=== PATIENT | male | born 1990 | race Caucasian/White ===

== ENCOUNTER 2016-12-08 20:10 | Emergency (ER) | payer SELFPAY ==
[2016-12-08] MEDS ORDERED: NORMAL SALINE 1000 ML 1,000 ML IV ONE ×2 (20:28→21:22)
--- NOTE | 2016-12-08 20:29 | ER Document Report ---
ED Substance Abuse / Acc. OD - General Stated Complaint: POSSIBLE OVERDOSE Time Seen by Provider: 12/08/16 20:18 Notes: Patient is a 26-year-old male that comes emergency department for chief complaint of heroin overdose. Patient was found unresponsive in the bathroom at home, uncle called EMS, EMS gave 1 mg of Narcan intranasally. Patient states he took 1/10 of a gram of heroin. He states he typically uses every few days. He denies mixing drugs or having any other medications in his system, he denies any prescription medications or diagnosed medical problems. He states he just feels like his mouth is extremely dry now. He denies difficulty breathing, chest pain, he denies any recent fevers, he denies headache. TRAVEL OUTSIDE OF THE [place] IN LAST 30 DAYS: No - Related Data Allergies/Adverse Reactions: No Known Allergies Allergy (Verified 04/20/13 19:52) Past Medical History - General Information source: Patient - Social History Smoking Status: Current Every Day Smoker Frequency of alcohol use: Occasional Drug Abuse: Heroin Lives with: Family Family History: Reviewed & Not Pertinent Psychiatric Medical History: Reports: Hx Depression Infectious Medical History: Reports: Hx MRSA Surgical Hx: Negative - Immunizations Immunizations up to date: Yes Hx Diphtheria, Pertussis, Tetanus Vaccination: Yes - september 2012 Review of Systems - Review of Systems Constitutional: No symptoms reported EENT: No symptoms reported Cardiovascular: See HPI Respiratory: No symptoms reported Gastrointestinal: No symptoms reported Genitourinary: No symptoms reported Male Genitourinary: No symptoms reported Musculoskeletal: No symptoms reported Skin: No symptoms reported Hematologic/Lymphatic: No symptoms reported Neurological/Psychological: No symptoms reported Physical Exam - Vital signs Vitals: Resp Pulse Ox 10 L 97 12/08/16 20:19 12/08/16 20:19 Interpretation: Normal - General General appearance: Other - patient mildly drowsy - HEENT Head: Normocephalic, Atraumatic Eyes: Normal Pupils: PERRL - Respiratory Respiratory status: No respiratory distress Chest status: Nontender Breath sounds: Normal. No: Decreased air movement, Wheezing Chest palpation: Normal - Cardiovascular Rhythm: Regular. No: Tachycardia Heart sounds: Normal auscultation, S1 appreciated, S2 appreciated Murmur: No - Abdominal Inspection: Normal Distension: No distension Bowel sounds: Normal Tenderness: Nontender. No: Tender, Guarding Organomegaly: No organomegaly - Back Back: Normal, Nontender. No: Tender, CVA tenderness - Extremities General upper extremity: Normal inspection, Nontender, Normal ROM, Normal strength General lower extremity: Normal inspection, Nontender, Normal ROM, Normal strength - Neurological Neuro grossly intact: Yes Cognition: Normal Orientation: AAOx4 Dustin Coma Scale Eye Opening: Spontaneous Dustin Coma Scale Verbal: Oriented Dustin Coma Scale Motor: Obeys Commands Dustin Coma Scale Total: 15 Speech: Normal. No: Dysarthria, Expressive aphasia, Receptive aphasia Cranial nerves: Normal Cerebellar coordination: Normal Motor strength normal: LUE, RUE, LLE, RLE Additional motor exam normals: Equal bleaching supervisor Sensory: Normal - Psychological Associated symptoms: Normal affect, Normal mood - Skin Skin Temperature: Warm Skin Moisture: Dry Skin Color: Normal Course - Re-evaluation Re-evalutation: Patient is oriented, cooperates with normal neurological exam, has clear lungs, he does appear slightly drowsy but he is also conversational. Family member. At bedside including mother and aunt. GCS of 15. 12/08/16 EKG shows sinus tachycardia at a rate of 101 with no concerning abnormalities. Chest x-ray unremarkable. Chemistry is unremarkable. CBC shows leukocytosis although this is nonspecific and could be a stress response. No fever, tachycardia resolved after fluids, patient clinically very dry on exam with parched mucous membranes and tachycardia, could also be the cause of leukocytosis. No back pain, abdominal pain, chest pain, headache, or concerning abnormality suggesting underlying infection from IV drug abuse. Patient given IV fluids. Monitored for 2 hours. Reevaluated. He became much more alert, became calm, actually became conversational. I had a long discussion with patient. He states he understands that he could have , he states he is actually lost multiple friends from heroin overdoses, states that he understands that he needs to quit. I also discussed the long-term risks of IV drug abuse. He states that he actually plans to follow-up with a psychiatrist referral if given, states he will talk to them about Subutex as an option. He denies SI or HI, he denies depression, he states that he just gets bored and goes seeking. Patient requesting to leave. Patient will be going home with family members. Discussed return precautions in detail, patient states understanding and agreement. - Vital Signs Vital signs: Temp Pulse Resp BP Pulse Ox 98.0 F 88 18 112/72 99 12/08/16 22:52 12/08/16 22:52 12/08/16 22:52 12/08/16 22:52 12/08/16 22:52 - Laboratory Result Diagrams: 12/08/16 20:30 12/08/16 20:30 Laboratory results interpreted by me: 12/08/16 12/08/16 20:30 20:30 WBC 22.5 H Abs Neuts (Manual) 17.1 H Glucose 172 H Discharge - Discharge Clinical Impression: Heroin overdose Qualifiers: Encounter type: initial encounter Injury intent: accidental or unintentional Qualified Code(s): T40.1X1A - Poisoning by heroin, accidental (unintentional), initial encounter Condition: Stable Disposition: HOME, SELF-CARE Additional Instructions: Heroin will kill you if you continue to use it. There is risk of both from overdose and serious complications such as blood borne disease and life threatening infections. Follow up with the referral (psychiatry referral for help with substance abuse with counseling and medications as needed). Return to emergency department for any concerning symptoms including fever, chest pain, difficulty breathing, or any other concerning symptoms.
[2016-12-08 20:45] LABS: HEMATOCRIT 41.7 % (37.9-51.0); HEMOGLOBIN 14.2 g/dL (13.5-17.0); HGB HCT DIFFERENCE 0.9; MEAN CORPUSCULAR HEMOGLOBIN 30.3 pg (27.0-33.4); MEAN CORPUSCULAR HGB CONC 34.2 g/dL (32.0-36.0); MEAN CORPUSCULAR VOLUME 89 fl (80-97); WHITE BLOOD COUNT 22.5 10^3/uL (4.0-10.5)
--- NOTE | 2016-12-08 20:45 | RADIOLOGY REPORT (SQ) ---
EXAM DESCRIPTION: CHEST SINGLE VIEW COMPLETED DATE/TIME: 12/08/2016 8:36 pm REASON FOR STUDY: found unresponsive COMPARISON: None. EXAM PARAMETERS: NUMBER OF VIEWS: One view. TECHNIQUE: Single frontal radiographic view of the chest acquired. RADIATION DOSE: NA LIMITATIONS: None. FINDINGS: LUNGS AND PLEURA: No opacities, masses or pneumothorax. No pleural effusion. MEDIASTINUM AND HILAR STRUCTURES: No masses. Contour normal. HEART AND VASCULAR STRUCTURES: Heart normal in size. Normal vasculature. BONES: No acute findings. HARDWARE: None in the chest. OTHER: No other significant finding. IMPRESSION: NO ACUTE RADIOGRAPHIC FINDING IN THE CHEST. TECHNICAL DOCUMENTATION: JOB ID: [id number]
[2016-12-08 20:58] LABS: ANION GAP 14 (5-19); BLOOD UREA NITROGEN 16 mg/dL (7-20); CALCIUM 9.4 mg/dL (8.4-10.2); CARBON DIOXIDE 27 mmol/L (22-30); CHLORIDE 99 mmol/L (98-107); GLUCOSE 172 mg/dL (75-110); POTASSIUM 4.4 mmol/L (3.6-5.0); SODIUM 139.8 mmol/L (137-145)
[2016-12-08 21:00] LABS: ALCOHOL < 10 mg/dL (NONE DETECTED)
[2016-12-08 21:06] LABS: BASOPHILS % (MANUAL) 0 % (0-2); EOSINOPHILS % (MANUAL) 1 % (0-6); LYMPHOCYTES % (MANUAL) 17 % (13-45); TOTAL CELLS COUNTED 100
[2016-12-08 21:09] LABS: ANISOCYTOSIS SLIGHT
[2016-12-08 22:55] VITALS: BP 112/72
--- NOTE | 2016-12-09 07:54 | EKG REPORT ---
SEVERITY:- OTHERWISE NORMAL ECG - SINUS TACHYCARDIA : Confirmed by: Tobi Swenson MD 09-Dec-2016 07:54:01
== END 2016-12-08 22:58 | disposition home or self-care (01) ==
LOC: ER 20:10
DX: T40.1X1A Poisoning by heroin, accidental (unintentional), initial encounter (principal); F17.200 Nicotine dependence, unspecified, uncomplicated
CPT/HCPCS: 93005; 99284; 96360; 96361; 36415; 80307; 85025; 80048; 71010; 93010; J7030

== ENCOUNTER 2018-11-07 19:58 | Emergency (ER) | payer SELFPAY ==
[2018-11-07 20:29] VITALS: BP 137/79
== END 2018-11-07 23:09 | disposition left against medical advice (07) ==
LOC: ER 19:58
DX: Z53.21 Procedure and treatment not carried out due to patient leaving prior to being seen by health care provider (principal)

== ENCOUNTER 2018-12-23 03:53 | Emergency (ER) | payer SELFPAY ==
[2018-12-23 04:02] VITALS: BP 132/64
[2018-12-23] MEDS ORDERED: CEPHALEXIN 500 MG CAPSULE PO ONE (05:19)
[2018-12-23] MEDS ORDERED: SULFAMETHOXAZOLE/TRIMETHOPRIM 800-160 MG TABLET PO ONE (05:19)
--- NOTE | 2018-12-23 05:30 | ER Document Report ---
ED Wound - General Chief Complaint: Wound Infection Stated Complaint: POSSIBLE SPIDER BITE LEFT UPPER ARM Time Seen by Provider: 12/23/18 05:11 Notes: Patient is a 28-year-old male presents to the emergency department for a possible spider bite to his left upper arm. Patient states he noticed redness and swelling last evening but this morning woke up to drainage from his left forearm. Patient states he squeezed the area and noticed copious purulent discharge as well as some blood. Patient's denying any history of MRSA. Admits to previous IV drug use but is denying current IV drug use or heroin use. Patient does have multiple areas of excoriation noted bilateral arms and lower legs. Patient's denying fever. TRAVEL OUTSIDE OF THE [place] IN LAST 30 DAYS: No - Related Data Allergies/Adverse Reactions: No Known Allergies Allergy (Verified 04/20/13 19:52) Past Medical History - General Information source: Patient - Social History Smoking Status: Current Every Day Smoker Chew tobacco use (# tins/day): No Frequency of alcohol use: None Drug Abuse: None Family History: Reviewed & Not Pertinent Patient has suicidal ideation: No Patient has homicidal ideation: No Psychiatric Medical History: Reports: Hx Depression Infectious Medical History: Reports: Hx MRSA - Immunizations Immunizations up to date: Yes Hx Diphtheria, Pertussis, Tetanus Vaccination: Yes - september 2012 Review of Systems - Review of Systems Constitutional: denies: Fever EENT: No symptoms reported Cardiovascular: No symptoms reported Respiratory: No symptoms reported Gastrointestinal: No symptoms reported Genitourinary: No symptoms reported Male Genitourinary: No symptoms reported Musculoskeletal: No symptoms reported Skin: See HPI Hematologic/Lymphatic: No symptoms reported Neurological/Psychological: No symptoms reported Physical Exam - Vital signs Vitals: Temp Pulse Resp BP Pulse Ox 97.6 F 98 22 H 132/64 H 99 12/23/18 03:55 12/23/18 03:55 12/23/18 03:55 12/23/18 03:55 12/23/18 03:55 - Notes Notes: GENERAL: Alert, interacts well. No acute distress. HEAD: Normocephalic, atraumatic. EYES: Pupils equal, round, and reactive to light. Extraocular movements intact. ENT: Oral mucosa moist, tongue midline. NECK: Full range of motion. Supple. Trachea midline. LUNGS: Clear to auscultation bilaterally, no wheezes, rales, or rhonchi. No respiratory distress. HEART: Regular rate and rhythm. No murmur ABDOMEN: Soft, non-tender. Non-distended. Bowel sounds present in all 4 quadrants. EXTREMITIES: Moves all 4 extremities spontaneously. No edema, normal radial and dorsalis pedis pulses bilaterally. No cyanosis. BACK: no cervical, thoracic, lumbar midline tenderness. No saddle anesthesia, normal distal neurovascular exam. NEUROLOGICAL: Alert and oriented x3. Normal speech. cranial nerves II through XII grossly intact PSYCH: Normal affect, normal mood. SKIN: Warm, dry, normal turgor. 3 cm x 3 cm area of erythema with central opening noted left upper lateral arm. No obvious discharge noted. Multiple other areas of excoriated tissue noted bilateral forearms and bilateral lower 70s. Course - Re-evaluation Re-evalutation: 12/23/18 05:27 Patient presents to the emergency department with a potential abscess. He states it had expressed purulent drainage prior to arrival to the emergency room. Based on my assessment there is cellulitic tissue noted. I will treat with antibiotics. At this time will discharge with return precautions and follow-up recommendations. Verbal discharge instructions given a the bedside and opportunity for questions given. Medication warnings reviewed. Patient is in agreement with this plan and has verbalized understanding of return precautions and the need for primary care follow-up in the next 24-72 hours. This medical record was dictated with voice recognizing software. There may be grammatical, syntax errors that are unintended. 12/23/18 05:30 States last tetanus was within the last 5 years. - Vital Signs Vital signs: Temp Pulse Resp BP Pulse Ox 97.6 F 98 22 H 132/64 H 99 12/23/18 03:55 12/23/18 03:55 12/23/18 03:55 12/23/18 03:55 12/23/18 03:55 Discharge - Discharge Clinical Impression: Cellulitis Qualifiers: Site of cellulitis: extremity Site of cellulitis of extremity: upper extremity Laterality: left Qualified Code(s): L03.114 - Cellulitis of left upper limb Condition: Stable Disposition: HOME, SELF-CARE Instructions: Abscess ([facility]), Antibiotic Ointment Protection ([facility]), Cellulitis ([facility]), Soap Cleansing ([facility]) Additional Instructions: As we discussed you have been seen and treated in the emergency department for an infection noted to your left upper arm. You have already expressed drainage. This is a good thing. Please keep the area clean and dry. Please take antibiotics as prescribed. Please follow-up with your primary care provider in the next 24 to 48 hours. Return to the emergency room for any concerns. Prescriptions: Sulfamethoxazole/Trimethoprim [Bactrim Ds Tablet] 1 each PO BID 7 Days #14 tablet Cephalexin Monohydrate [Keflex 500 mg Capsule] 500 mg PO BID 7 Days #14 capsule
== END 2018-12-23 05:30 | disposition home or self-care (01) ==
LOC: ER 03:53
DX: L03.114 Cellulitis of left upper limb (principal); S50.812A Abrasion of left forearm, initial encounter; S50.811A Abrasion of right forearm, initial encounter; S80.812A Abrasion, left lower leg, initial encounter; S80.811A Abrasion, right lower leg, initial encounter; X58.XXXA Exposure to other specified factors, initial encounter; F17.200 Nicotine dependence, unspecified, uncomplicated
CPT/HCPCS: 99281

== ENCOUNTER 2019-04-18 15:17 | Emergency (ER) | payer SELFPAY ==
[2019-04-18 15:24] VITALS: BP 141/94
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
[2019-04-18 16:38] LABS: HEMOGLOBIN 13.7 g/dL (13.5-17.0); MEAN CORPUSCULAR HEMOGLOBIN 27.8 pg (27.0-33.4); MEAN CORPUSCULAR HGB CONC 33.3 g/dL (32.0-36.0); MEAN CORPUSCULAR VOLUME 84 fl (80-97); PLATELET COUNT 449 10^3/uL (150-450); RED BLOOD COUNT 4.91 10^6/uL (4.35-5.55); RED CELL DISTRIBUTION WIDTH 14.8 % (11.5-14.0); WHITE BLOOD COUNT 20.3 10^3/uL (4.0-10.5)
[2019-04-18 16:40] LABS: APPEARANCE,URINE CLEAR; BILIRUBIN,URINE NEGATIVE (NEGATIVE); COLOR,URINE YELLOW; GLUCOSE, URINE NEGATIVE (NEGATIVE); KETONES,URINE NEGATIVE (NEGATIVE); LEUKOCYTE ESTERASE,URINE TRACE (NEGATIVE); NITRITE,URINE NEGATIVE (NEGATIVE); PROTEIN,URINE NEGATIVE (NEGATIVE); URINE SPECIFIC GRAVITY 1.016; UROBILINOGEN,URINE NEGATIVE mg/dL (<2.0)
[2019-04-18 16:57] LABS: URINE BARBITURATES SCREEN NEGATIVE; URINE BENZODIAZEPINES SCREEN NEGATIVE; URINE COCAINE SCREEN NEGATIVE; URINE METHADONE SCREEN NEGATIVE; URINE PHENCYCLIDINE SCREEN NEGATIVE
[2019-04-18 17:02] LABS: ALBUMIN 3.8 g/dL (3.5-5.0); ALKALINE PHOSPHATASE 121 U/L (38-126); ANION GAP 8 (5-19); ASPARTATE AMINO TRANSFERASE 22 U/L (17-59); BILIRUBIN,DIRECT 0.2 mg/dL (0.0-0.4); BILIRUBIN,TOTAL 0.2 mg/dL (0.2-1.3); BLOOD UREA NITROGEN 5 mg/dL (7-20); CALCIUM 9.5 mg/dL (8.4-10.2); CARBON DIOXIDE 29 mmol/L (22-30); CHLORIDE 100 mmol/L (98-107); GLUCOSE 92 mg/dL (75-110); POTASSIUM 4.2 mmol/L (3.6-5.0); TOTAL PROTEIN 7.4 g/dL (6.3-8.2); URINE MARIJUANA (THC) SCREEN UNCONFIRMED POSITIVE
[2019-04-18 17:26] LABS: ABSOLUTE LYMPHOCYTES# (MANUAL) 5.1 10^3/uL (0.5-4.7); ANISOCYTOSIS SLIGHT; BASOPHILS % (MANUAL) 0 % (0-2); EOSINOPHILS % (MANUAL) 3 % (0-6); LYMPHOCYTES % (MANUAL) 25 % (13-45); MONOCYTES % (MANUAL) 10 % (3-13); PLATELET COMMENT ADEQUATE; SEGMENTED NEUTROPHILS % (MAN) 62 % (42-78); TOTAL CELLS COUNTED 100
== END 2019-04-18 17:15 | disposition left against medical advice (07) ==
LOC: ER 15:17
DX: S01.111A Laceration without foreign body of right eyelid and periocular area, initial encounter (principal); R51 Headache; V86.96XA Unspecified occupant of dirt bike or motor/cross bike injured in nontraffic accident, initial encounter; Z90.81 Acquired absence of spleen; Z53.20 Procedure and treatment not carried out because of patient's decision for unspecified reasons
CPT/HCPCS: 99281; 36415; 85025; 80053; 81001; 80307 ×2; G0480

== ENCOUNTER 2019-04-20 20:56 | Inpatient (IN) | payer SELFPAY ==
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
[2019-04-20 21:33] LABS: HEMATOCRIT 40.5 % (37.9-51.0); HEMOGLOBIN 13.6 g/dL (13.5-17.0); MEAN CORPUSCULAR HEMOGLOBIN 27.7 pg (27.0-33.4); MEAN CORPUSCULAR HGB CONC 33.5 g/dL (32.0-36.0); MEAN CORPUSCULAR VOLUME 83 fl (80-97); PLATELET COUNT 449 10^3/uL (150-450); RED BLOOD COUNT 4.89 10^6/uL (4.35-5.55); WHITE BLOOD COUNT 23.4 10^3/uL (4.0-10.5)
[2019-04-20 21:44] LABS: ALBUMIN 3.9 g/dL (3.5-5.0); ALKALINE PHOSPHATASE 118 U/L (38-126); ANION GAP 11 (5-19); ASPARTATE AMINO TRANSFERASE 21 U/L (17-59); BILIRUBIN,DIRECT 0.2 mg/dL (0.0-0.4); BILIRUBIN,TOTAL 0.2 mg/dL (0.2-1.3); BLOOD UREA NITROGEN 10 mg/dL (7-20); CALCIUM 9.4 mg/dL (8.4-10.2); CARBON DIOXIDE 27 mmol/L (22-30); CHLORIDE 96 mmol/L (98-107); GLUCOSE 129 mg/dL (75-110); TOTAL PROTEIN 7.6 g/dL (6.3-8.2)
[2019-04-20 22:06] LABS: ABSOLUTE LYMPHOCYTES# (MANUAL) 2.8 10^3/uL (0.5-4.7); ABSOLUTE MONOCYTES # (MANUAL) 2.6 10^3/uL (0.1-1.4); BAND NEUTROPHILS % (MANUAL) 1 % (3-5); BASOPHILS % (MANUAL) 1 % (0-2); EOSINOPHILS % (MANUAL) 0 % (0-6); LYMPHOCYTES % (MANUAL) 12 % (13-45); METAMYELOCYTES % (MANUAL) 1 % (0-1); MONOCYTES % (MANUAL) 11 % (3-13); SEGMENTED NEUTROPHILS % (MAN) 74 % (42-78); TOTAL CELLS COUNTED 100
[2019-04-20 22:07] LABS: ANISOCYTOSIS 1+; PLATELET COMMENT ADEQUATE; POLYCHROMASIA 1+
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
[2019-04-20] MEDS ORDERED: VANCOMYCIN HCL INJ 1000 MG VIAL IV ONE (23:25)
[2019-04-20] MEDS ORDERED: NORMAL SALINE 1000 ML 1,000 ML IV ONE (23:26)
--- NOTE | 2019-04-20 23:28 | RADIOLOGY REPORT (SQ) ---
EXAM DESCRIPTION: XR CHEST 2 VIEWS COMPLETED DATE/TME: 04/20/2019 22:29 CLINICAL HISTORY: 29 years, Male, sepsis COMPARISON: December 08, 2016 NUMBER OF VIEWS: 4 TECHNIQUE: Frontal and lateral LIMITATIONS: None. FINDINGS: Cardiomediastinal silhouette is normal. The lungs are mildly hyperinflated but clear. No consolidation or edema. No effusion or pneumothorax. No adverse change from prior. IMPRESSION: No active intrathoracic disease copyright 2010 [employer]- All Rights Reserved
[2019-04-21 00:22] LABS: APPEARANCE,URINE CLEAR; BILIRUBIN,URINE NEGATIVE (NEGATIVE); COLOR,URINE YELLOW; GLUCOSE, URINE NEGATIVE (NEGATIVE); KETONES,URINE NEGATIVE (NEGATIVE); LEUKOCYTE ESTERASE,URINE NEGATIVE (NEGATIVE); NITRITE,URINE NEGATIVE (NEGATIVE); PROTEIN,URINE NEGATIVE (NEGATIVE); URINE SPECIFIC GRAVITY 1.006; UROBILINOGEN,URINE NEGATIVE mg/dL (<2.0)
[2019-04-21 00:34] LABS: URINE BARBITURATES SCREEN NEGATIVE; URINE BENZODIAZEPINES SCREEN NEGATIVE; URINE COCAINE SCREEN NEGATIVE; URINE MARIJUANA (THC) SCREEN NEGATIVE; URINE METHADONE SCREEN NEGATIVE; URINE PHENCYCLIDINE SCREEN NEGATIVE
[2019-04-21] MEDS ORDERED: LEVOFLOXACIN 750 MG/D5W RTU 750 MG/150 ML RTUPB IV ONE (01:00)
[2019-04-21] MEDS ORDERED: NALOXONE HCL INJ/PF 0.4 MG/1 ML SDV IV ONE (02:30)
[2019-04-21] MEDS ORDERED: NALOXONE HCL INJ 2 MG/2 ML DISP.SYRIN ONE (02:30)
[2019-04-21] MEDS ORDERED: NORMAL SALINE 1000 ML 1,000 ML IV PRN (02:45)
[2019-04-21] MEDS ORDERED: VANCOMYCIN HCL 0 MG in DEXTROSE 5%-WATER 250 ML IV NR (02:45)
[2019-04-21] MEDS ORDERED: MAGNESIUM HYDROXIDE SUSP 30 ML UDCUP PO PRN (02:45)
[2019-04-21] MEDS ORDERED: IPRATROPIUM/ALBUTEROL 0.5-2.5 MG/3 ML AMPUL NEB PRN (02:45)
[2019-04-21] MEDS ORDERED: MAG HYDROX/AL HYDROX/SIMETH SUSP 30 ML UDCUP PO PRN (02:45)
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
[2019-04-21] MEDS ORDERED: CEFTRIAXONE 1 GM/D5W RTU 1 GM/50 ML RTUPB IV ONE (04:00)
[2019-04-21] MEDS: METHADONE HCL 10 MG TABLET PO SCH ×4 (05:15→21:41)
[2019-04-21] MEDS ORDERED: HEPARIN SOD (PORCINE) 5,000 UNIT/ML 1 ML VIAL SUBCUT SCH (06:00)
[2019-04-21] MEDS ORDERED: NORMAL SALINE 1000 ML 1,000 ML IV ONE (08:37)
--- NOTE | 2019-04-21 08:37 | PDOC CONSULTATION ---
Consultation Consult Date: 04/21/19 Provider Consulted: CATHI SHAH Consult reason:: Multiple skin abscesses History of Present Illness Admission Date/PCP: 04/21/19 02:52 Patient complains of: Multiple skin abscesses History of Present Illness: KEYONA LEYVA is a 29 year old male heroine drug user 40 years, who presents emergency room complaining of multiple draining skin abscesses located on the scalp neck back buttock right and left upper extremity and left thigh. He has a history of MRSA, history of hepatitis C now cured from, denies being homosexual, and has an unknown HIV status. Past Medical History Cardiac Medical History: Reports: None Pulmonary Medical History: Reports: None EENT Medical History: Reports: None Neurological Medical History: Reports: None Endocrine Medical History: Reports: None Renal/ Medical History: Reports: None Malignancy Medical History: Reports: None GI Medical History: Reports: None Musculoskeltal Medical History: Reports: Arthritis Psychiatric Medical History: Reports: Depression, Substance Abuse Infectious Medical History: Reports: Methicillin-Resistant Staph Aureus Past Surgical History Past Surgical History: Reports: Splenectomy Social History Lives with: Alone Smoking Status: Current Every Day Smoker Cigarettes Packs Per Day: 1 Hx Recreational Drug Use: Yes - 04/20/19 Drugs: Heroin, Marijuana - Advance Directive Resuscitation Status: Full Code Family History Family History: Hypertension Parental Family History Reviewed: No Children Family History Reviewed: No Sibling(s) Family History Reviewed.: No Medication/Allergy Home Medications: No Home Medications 04/21/19 Allergies/Adverse Reactions: No Known Allergies Allergy (Verified 04/21/19 04:00) Physical Exam Vital Signs: Temp Pulse Resp BP Pulse Ox 98.3 F 109 H 17 131/88 H 99 04/21/19 04:30 04/21/19 04:30 04/21/19 04:30 04/21/19 04:30 04/21/19 04:30 Intake & Output 04/20/19 04/21/19 04/22/19 06:59 06:59 06:59 Intake Total 1200 Output Total 850 Balance 350 Weight 67.9 kg General appearance: PRESENT: disheveled, mild distress, thin Head exam: PRESENT: atraumatic Eye exam: PRESENT: EOMI Mouth exam: PRESENT: moist, neck supple Teeth exam: PRESENT: poor dentation Respiratory exam: PRESENT: clear to auscultation jeanine Cardiovascular exam: PRESENT: RRR GI/Abdominal exam: PRESENT: normal bowel sounds, soft Rectal exam: PRESENT: deferred Extremities exam: PRESENT: full ROM Musculoskeletal exam: PRESENT: full ROM, tenderness - Right long finger = swel ling, tenderness, and decrease in the motion of the long finger with area of fluctuation by the nailbed, other - Decreased range of motion right long finger Psychiatric exam: PRESENT: anxious, depressed Skin exam: PRESENT: warm - Multiple skin abscesses with active drainage located in the scalp, right mastoid, right neck, right flank, right buttock, right forearm, right long finger, left hand, left ring finger, and left thigh Results Laboratory Results: 04/20/19 21:15 04/20/19 21:15 04/20/19 04/20/19 04/20/19 21:15 21:15 23:52 WBC 23.4 H RBC 4.89 Hgb 13.6 Hct 40.5 MCV 83 MCH 27.7 MCHC 33.5 RDW 15.0 H Plt Count 449 Seg Neutrophils % Not Reportable Sodium 133.6 L Potassium 4.0 Chloride 96 L Carbon Dioxide 27 Anion Gap 11 BUN 10 Creatinine 0.78 Est GFR ( Amer) > 60 Glucose 129 H Calcium 9.4 Total Bilirubin 0.2 AST 21 Alkaline Phosphatase 118 Total Protein 7.6 Albumin 3.9 Urine Color YELLOW Urine Appearance CLEAR Urine pH 6.0 Ur Specific [place] 1.006 Urine Protein NEGATIVE Urine Glucose (UA) NEGATIVE Urine Ketones NEGATIVE Urine Blood NEGATIVE Urine Nitrite NEGATIVE Ur Leukocyte Esterase NEGATIVE Urine WBC (Auto) 0 Urine RBC (Auto) 1 Impressions: Chest X-Ray 04/20/19 22:29 IMPRESSION: No active intrathoracic disease copyright 2011 [employer]- All Rights Reserved Assessment & Plan - Diagnosis (1) IV drug abuse Is this a current diagnosis for this admission?: Yes (2) Onychia and paronychia of finger Is this a current diagnosis for this admission?: Yes (3) Pyogenic skin abscess due to bacteria Is this a current diagnosis for this admission?: Yes - Plan Summary Plan Summary: Assessment: Multiple skin abscesses (Multiple skin abscesses with active drainage located in the scalp, right mastoid, right neck, right flank, right buttock, right forearm, right long finger, left hand, left ring finger, and left thigh) Paronychia with purulent collection of the right long finger History of IV drug abuse (heroin) Past history of hepatitis C virus, now cured Unknown HIV status Plan: N.p.o. Incision and drainage of multiple skin abscesses today Procedure, risks, benefits, complications, alternatives discussed with the patient, his questions answered, and he decides to proceed Consult orthopedic surgery for the right long finger paronychial abscess due to the infection extending to the middle and proximal phalanx
[2019-04-21] MEDS: DOCUSATE SODIUM 100 MG CAPSULE PO SCH ×2 (09:58→17:55)
[2019-04-21] MEDS: NORMAL SALINE 1000 ML 1,000 ML IV PRN ×2 (11:03→17:40)
[2019-04-21] MEDS: VANCOMYCIN HCL 1,000 MG in DEXTROSE 5%-WATER 250 ML IV SCH ×2 (11:04→17:39)
[2019-04-21] MEDS ORDERED: ONDANSETRON HCL INJ/PF 4 MG/2 ML SDV ONE (12:47)
[2019-04-21] MEDS ORDERED: DEXMEDETOMIDINE INJ 80 MCG/20 ML VIAL IV ONE (12:47)
[2019-04-21] MEDS ORDERED: KETOROLAC TROMETHAMINE 60 MG/2 ML SDV ONE (12:47)
[2019-04-21] MEDS ORDERED: MIDAZOLAM 2 MG/2 ML INJ ONE (12:47)
[2019-04-21] MEDS ORDERED: FENTANYL CITRATE INJ/PF 100 MCG/2 ML AMPUL ONE (12:47)
[2019-04-21] MEDS ORDERED: PROPOFOL INJ 200 MG/20 ML VIAL IV ONE (12:48)
--- NOTE | 2019-04-21 13:06 | PDOC CONSULTATION ---
Consultation Consult Date: 04/21/19 Provider Consulted: ZHENG DENISE JR History of Present Illness Admission Date/PCP: 04/21/19 02:52 History of Present Illness: KEYONA LEYVA is a 29 year old male has a history of IV drug abuse as well as asplenia and multiple recurrent infections. He returns to the hospital today for multiple boils and the feeling of malaise and fever. He was admitted for medical and surgical treatment. There are multiple boils in many locations on his body that are currently being managed by general surgery. I was asked to evaluate in regards to the patient's right subungual infection. Patient reports that all of these arose in progress for the last 4 days. He has a history of IV drug abuse and has had multiple infections and potentially a history of HIV and hepatitis C. Updated labs on these are pending. He reports pain in his finger of a 7 out of 10 worse with any attempted motion or function, improved with rest and pain medication, burning and aching in nature. He denies any drainage, denies a direct insult to that area prior to this infection. Past Medical History Cardiac Medical History: Reports: None Pulmonary Medical History: Reports: None EENT Medical History: Reports: None Neurological Medical History: Reports: None Endocrine Medical History: Reports: None Renal/ Medical History: Reports: None Malignancy Medical History: Reports: None GI Medical History: Reports: None Musculoskeltal Medical History: Reports: Arthritis Psychiatric Medical History: Reports: Depression, Substance Abuse Infectious Medical History: Reports: Methicillin-Resistant Staph Aureus Past Surgical History Past Surgical History: Reports: Splenectomy Social History Lives with: Alone Smoking Status: Current Every Day Smoker Cigarettes Packs Per Day: 1 Hx Recreational Drug Use: Yes - 04/20/19 Drugs: Heroin, Marijuana - Advance Directive Resuscitation Status: Full Code Family History Family History: Hypertension Parental Family History Reviewed: No Children Family History Reviewed: NA Sibling(s) Family History Reviewed.: NA Medication/Allergy Home Medications: No Home Medications 04/21/19 Allergies/Adverse Reactions: No Known Allergies Allergy (Verified 04/21/19 04:00) Review of Systems Review of Systems: Constitutional: PRESENT: anorexia, chills, fatigue, fever(s), headache(s), night sweats, weakness, weight loss. ABSENT: weight gain Eyes: ABSENT: visual disturbances Ears: ABSENT: hearing changes Cardiovascular: PRESENT: as per HPI. ABSENT: chest pain, dyspnea on exertion Respiratory: ABSENT: cough, hemoptysis Gastrointestinal: ABSENT: abdominal pain, constipation, diarrhea, hematemesis, hematochezia, nausea, vomiting Genitourinary: ABSENT: dysuria, hematuria Musculoskeletal: PRESENT: as per HPI, muscle weakness. ABSENT: joint swelling Integumentary: PRESENT: as per HPI, erythema, lesions, wounds Neurological: ABSENT: abnormal gait, abnormal speech, confusion, dizziness, focal weakness, syncope Psychiatric: PRESENT: as per HPI, depression. ABSENT: homidical ideation, suicidal ideation Endocrine: PRESENT: as per HPI Hematologic/Lymphatic: ABSENT: easy bleeding, easy bruising Physical Exam Vital Signs: Temp Pulse Resp BP Pulse Ox 97.4 F 92 15 121/61 99 04/21/19 10:19 04/21/19 10:19 04/21/19 10:19 04/21/19 10:19 04/21/19 10:19 Intake & Output 04/20/19 04/21/19 04/22/19 06:59 06:59 06:59 Intake Total 1200 1221 Output Total 850 Balance 350 1221 Weight 67.9 kg Results Laboratory Results: 04/20/19 21:15 04/20/19 21:15 04/20/19 04/20/19 04/20/19 21:15 21:15 23:52 WBC 23.4 H RBC 4.89 Hgb 13.6 Hct 40.5 MCV 83 MCH 27.7 MCHC 33.5 RDW 15.0 H Plt Count 449 Seg Neutrophils % Not Reportable Sodium 133.6 L Potassium 4.0 Chloride 96 L Carbon Dioxide 27 Anion Gap 11 BUN 10 Creatinine 0.78 Est GFR ( Amer) > 60 Glucose 129 H Calcium 9.4 Total Bilirubin 0.2 AST 21 Alkaline Phosphatase 118 Total Protein 7.6 Albumin 3.9 Urine Color YELLOW Urine Appearance CLEAR Urine pH 6.0 Ur Specific [place] 1.006 Urine Protein NEGATIVE Urine Glucose (UA) NEGATIVE Urine Ketones NEGATIVE Urine Blood NEGATIVE Urine Nitrite NEGATIVE Ur Leukocyte Esterase NEGATIVE Urine WBC (Auto) 0 Urine RBC (Auto) 1 04/20/19 23:52 Blood Blood Culture (PCR) - Final Staphylococcus Aureus Strep Pyogenes (Grp A) Impressions: Chest X-Ray 04/20/19 22:29 IMPRESSION: No active intrathoracic disease copyright 2011 [email or web address]- All Rights Reserved Assessment & Plan - Diagnosis (1) Onychia and paronychia of finger Is this a current diagnosis for this admission?: Yes Plan: -I have discussed this case with Dr. Mercedes who will be the primary surgeon at the time of multiple I&D's for his multiple abscesses. I was directly involved in order to address the patient's onychia. -I did have a conversation with the patient regards to the risks and benefits of the procedure. Patient understands that his infection right now is surrounding the nailbed and potentially has compromised the nailbed. Further intervention c an also lead to risk of injury of the nailbed and subsequently a permanent damage to the development of the fingernail in his right third finger. He understands this but also understands that continued infection would also continue to damage the nailbed and potentially lead to further illness sepsis and even potentially . After discussing risks and benefits of a LEEP the patient did provide operative consent. -Antibiotic recommendations will be pending cultures and the direct medical deci sions of the primary service. Following I&D of the finger, he should have 3 times daily soaks with dilute Betadine in warm normal saline for 15 to 30 minutes at a time
[2019-04-21] MEDS ORDERED: LIDOCAINE 0.5%/EPINEPHRINE INJ 50 ML VIAL ONE (13:11)
[2019-04-21] MEDS ORDERED: MORPHINE SULFATE 10 MG/ML INJ IV PRN (13:12)
[2019-04-21] MEDS ORDERED: FENTANYL CITRATE INJ/PF 100 MCG/2 ML AMPUL IV PRN ×3 (13:12)
[2019-04-21] MEDS ORDERED: PROMETHAZINE HCL INJ 25 MG/1 ML VIAL IV PRN ×2 (13:12)
[2019-04-21] MEDS ORDERED: MEPERIDINE HCL/PF INJ 25 MG/1 ML DISP.SYRIN IV PRN (13:12)
[2019-04-21] MEDS ORDERED: DIPHENHYDRAMINE HCL 50 MG/ML VIAL IV PRN (13:12)
[2019-04-21] MEDS ORDERED: OXYCODONE-ACETAMINOPHEN 5-325 MG TABLET PO PRN ×2 (13:12)
[2019-04-21] MEDS ORDERED: NEOMY/BACITRAC ZN/POLY OINT 15 GM ONE (13:22)
[2019-04-21] MEDS ORDERED: ONDANSETRON HCL INJ/PF 4 MG/2 ML SDV IV PRN (13:23)
--- NOTE | 2019-04-21 13:51 | Operative Report ---
Operative Report DATE OF SURGERY: 04/21/19 PREOPERATIVE DIAGNOSIS: Right third finger onychia POSTOPERATIVE DIAGNOSIS: Right third finger onychia OPERATION: I&D right third finger with removal of the fingernail. SURGEON: ZHENG DENISE JR - Comanaging the case with Dr. Ralph ANESTHESIA: LMAC TISSUE REMOVED OR ALTERED: Fingernail with associated purulence sent for culture COMPLICATIONS: None PROCEDURE: Patient was brought to the operating suite and placed under LMAC. Multiple sites were marked previously by Dr. Ralph. Multiple locations were prepped and draped in standard sterile fashion utilizing Betadine prep. The right third finger was provided a dorsal and volar block with lidocaine. After appropriate analgesia a [place] was utilized to unroofed the nailbed. A large portion of the nailbed into the germinal matrix was infected and the purulence continued to the soft tissue almost to the level of the DIP joint. Upon introducing the [place] purulence was expressed, and the nail was carefully removed. The nailbed and germinal matrix were then explored for any further deeper infection and the wound was then cleaned with sterile saline, a Xeroform dressing was placed, followed by a Emam wrap. I assisted Dr. Ralph in dressing multiple other wounds on the right upper extremity up to the axilla that were superficial in nature and required light scraping of the wound with a freer to unroofed and express purulence down to a healthy bleeding base these were all cleaned with sterile saline and a Xeroform dressing was applied to each and a Kerlix wrap was then applied to the forearm. The patient was awakened from anesthesia and transferred to the PACU in stable condition.
--- NOTE | 2019-04-21 14:07 | Operative Report ---
Nonrecallable Operative Report DATE OF SURGERY: 04/21/19 PREOPERATIVE DIAGNOSIS: History of IV drug abuse (heroin); multiple skin abscesses (scalp, right mastoid and neck, right flank, right buttock, right forearm x3, left thigh, left hand x2) POSTOPERATIVE DIAGNOSIS: Same OPERATION: Incision and drainage of all above skin abscesses SURGEON: CATHI SHAH ANESTHESIA: Local - 40 mL 1% lidocaine TISSUE REMOVED OR ALTERED: Culture from multiple abscesses COMPLICATIONS: None ESTIMATED BLOOD LOSS: Less than 10 mL INTRAOPERATIVE FINDINGS: Multiple skin abscesses as described above PROCEDURE: The procedure was done in the operating room, the patient was placed in a supine position, deep IV sedation was provided by anesthesiologist the area of the abscesses started above was prepped and draped in usual fashion and each was infiltrated with percent lidocaine. All abscesses were dealt in a similar fashion. After skin incision was made with Bovie on top of each abscess, a moderate amount of pus was obtained. This was sent for aerobic anaerobic culture and Gram stain. The incision was then extended further if needed. After this, a finger was inserted inside the abscess cavity which was debrided with a curette and irrigated with normal saline. Local bleeders were cauterized. Each abscess cavity was filled with Neosporin ointment, covered with dry 4 x 4's and tape was applied. The patient tolerated procedure well, was extubated, and transferred to the recovery room in satisfactory conditions. Dr. Atwood from orthopedic surgery will dictate his portion of the procedure in regard to the debridement of the patient's right hand long finger paronychial abscess.
--- NOTE | 2019-04-21 15:48 | PSYCHOLOGICAL NOTE ---
Psych Note - Psych Note Date seen by psych provider: 04/21/19 Time seen by psych provider: 14:25 Psych Note: Patient is a 29-year-old female who presented initially to ED via POV with medical concerns. Patient has an extensive history of IV heroin use. Patient reports concerns with chronic pain. Patient stated his substance use began when he began nonprescribed narcotics for pain. Patient states pills became expensive, and then began using heroin because "it was cheaper." Patient states he has been engaging in IV heroin use for 8 years. Patient has been to substance abuse treatment 6 times. Patient currently lives with his boss. Patient reports limited social support. Patient states he is "serious" about his recovery because he has lost "16 friends" due to overdose. Clinician provided psychoeducation regarding the biological and psychological aspects of addiction. Patient requested suboxone. Clinician discussed [facility] with patient. Patient was receptive. Patient states he cannot "go inpatient" because he needs to work. Patient is not currently linked with a mental health provider. Patient is alert and oriented to person, place, time and circumstance. Mood is normal with congruent affect. Patient denies suicidal and homicidal ideations. Delusions are absent and behavior is congruent with an intact reality based presentation (i.e., organized and linear through processes). There is no observed behavior that suggests patient is responding to internal stimuli. Patient is able to engage in organzied, rational thought processes. Patient is able to express needs and wants in a logical manner. Patient denies current a uditory and visual hallucinations. Eye contact is appropriate. Conversational speech is within normal rate, tone, and prosody. Intellectual ability appears to be within average range. Attention and concentration are good. Insight, judgment and impulse control are currently poor. Impression/Plan: Patient is cleared from acute psychiatric services. Patient denies suicidal and homicidal ideations. There is no observed behavior that suggests patient is responding to internal stimuli. Patient engaged in organized, rational, linear thought processes and was able to express needs and wants in a logical manner. Patient was provided with a substance abuse resource list. Dr. Kunz was consulted on the care and management of this patient; attending physician is in agreement with recommendations and disposition.
--- NOTE | 2019-04-21 18:29 | EKG REPORT ---
SEVERITY:- NORMAL ECG - SINUS RHYTHM : Confirmed by: Lovely Roman MD 21-Apr-2019 18:29:10
[2019-04-21] MEDS: CEFTRIAXONE 1 GM/D5W RTU 1 GM/50 ML RTUPB IV SCH (21:41)
[2019-04-21] MEDS: ACETAMINOPHEN 325 MG TABLET PO PRN (21:42)
[2019-04-22 05:16] LABS: ABSOLUTE BASOPHILS # (AUTO) 0.3 10^3/uL (0.0-0.2); ABSOLUTE EOSINOPHILS # (AUTO) 0.9 10^3/uL (0.0-0.6); ABSOLUTE LYMPHOCYTES (AUTO) 3.7 10^3/uL (0.5-4.7); ABSOLUTE NEUT (AUTO) 6.5 10^3/uL (1.7-8.2); EOSINOPHILS % (AUTO) 6.6 % (0-6); HEMATOCRIT 41.3 % (37.9-51.0); HEMOGLOBIN 13.5 g/dL (13.5-17.0); LYMPHOCYTES % (AUTO) 27.9 % (13-45); MEAN CORPUSCULAR HEMOGLOBIN 27.4 pg (27.0-33.4); MEAN CORPUSCULAR HGB CONC 32.8 g/dL (32.0-36.0); MEAN CORPUSCULAR VOLUME 84 fl (80-97); MONOCYTES % (AUTO) 14.7 % (3-13); PLATELET COUNT 415 10^3/uL (150-450); RED BLOOD COUNT 4.93 10^6/uL (4.35-5.55); SEGMENTED NEUTROPHILS % (AUTO) 48.8 % (42-78); TOTAL CELLS COUNTED % (AUTO) 100 %; WHITE BLOOD COUNT 13.3 10^3/uL (4.0-10.5)
[2019-04-22 05:33] LABS: ANION GAP 9 (5-19); BLOOD UREA NITROGEN 6 mg/dL (7-20); CALCIUM 9.7 mg/dL (8.4-10.2); CARBON DIOXIDE 26 mmol/L (22-30); CHLORIDE 105 mmol/L (98-107); GLUCOSE 100 mg/dL (75-110); POTASSIUM 4.9 mmol/L (3.6-5.0)
[2019-04-22] MEDS: METHADONE HCL 10 MG TABLET PO SCH ×3 (06:24→23:36)
[2019-04-22] MEDS: VANCOMYCIN HCL 1,000 MG in DEXTROSE 5%-WATER 250 ML IV SCH ×2 (06:25→11:18)
--- NOTE | 2019-04-22 07:46 | PDOC PROGRESS REPORT ---
Subjective Progress Note for:: 04/22/19 Subjective:: Patient is sleeping upon initiation of exam. He is lethargic but appropriately responsive. Reports no acute changes in symptoms. Reports overall improvement in feeling of sickness and malaise. Pain is well controlled Reason For Visit: SEPSIS,PYOGENIC SKIN ABSCESS DUE TO BACTERIA, Physical Exam Vital Signs: Temp Pulse Resp BP Pulse Ox 97.8 F 94 14 158/78 H 100 04/21/19 19:15 04/22/19 02:00 04/22/19 02:00 04/21/19 19:15 04/21/19 19:15 Intake & Output 04/21/19 04/22/19 04/23/19 06:59 06:59 06:59 Intake Total 1200 6036 Output Total 850 10 Balance 350 6026 Weight 67.9 kg 67.9 kg Physical Exam: Right upper extremity -The patient has removed his dressings. Xeroform is still present over his fi nger. There is no deneen purulence at this time however the distal phalanx of the right third finger is continuously swollen and erythematous. I was able to express some mild amount of purulent and serous fluid from the prior surgical site. No bleeding. Sensation is grossly intact as well as capillary refill. Results Laboratory Results: 04/22/19 04:43 04/22/19 04:43 04/22/19 04/22/19 04:43 04:43 WBC 13.3 H RBC 4.93 Hgb 13.5 Hct 41.3 MCV 84 MCH 27.4 MCHC 32.8 RDW 15.0 H Plt Count 415 Seg Neutrophils % 48.8 Sodium 139.7 Potassium 4.9 Chloride 105 Carbon Dioxide 26 Anion Gap 9 BUN 6 L Creatinine 0.69 Est GFR ( Amer) > 60 Glucose 100 Calcium 9.7 04/20/19 23:52 Blood Blood Culture (PCR) - Final Staphylococcus Aureus Strep Pyogenes (Grp A) Impressions: Chest X-Ray 04/20/19 22:29 IMPRESSION: No active intrathoracic disease copyright 2011 [employer]- All Rights Reserved Assessment & Plan - Diagnosis (1) Onychia and paronychia of finger Is this a current diagnosis for this admission?: Yes Plan: -Recommend regular wound management per nursing staff. For his right middle finger suggest 3 times daily soaks and warm saline with dilute Betadine 30 minutes per occasion. -Continue current pain management. -Antibiotics per medical team. - Time Time Spent with patient: Less than 15 minutes
--- NOTE | 2019-04-22 08:59 | PDOC PROGRESS REPORT ---
Subjective Progress Note for:: 04/22/19 Subjective:: Patient comfortable, in good mood according to the nurses he tried to elope this morning while wearing his hospital gown Reason For Visit: SEPSIS,PYOGENIC SKIN ABSCESS DUE TO BACTERIA, Physical Exam Vital Signs: Temp Pulse Resp BP Pulse Ox 97.8 F 94 14 158/78 H 100 04/21/19 19:15 04/22/19 02:00 04/22/19 02:00 04/21/19 19:15 04/21/19 19:15 Intake & Output 04/21/19 04/22/19 04/23/19 06:59 06:59 06:59 Intake Total 1200 6036 Output Total 850 10 Balance 350 6026 Weight 67.9 kg 67.9 kg General appearance: PRESENT: no acute distress, thin Teeth exam: PRESENT: poor dentation Respiratory exam: PRESENT: clear to auscultation jeanine Cardiovascular exam: PRESENT: RRR GI/Abdominal exam: PRESENT: soft Skin exam: PRESENT: warm, other - Multiple abscesses: Scalp, right mastoid, right neck, right flank, right buttock, right forearm x3, left thigh, left hand and finger, all healing and granulating without drainage and odor, presence of residual cellulitis Results Laboratory Results: 04/22/19 04:43 04/22/19 04:43 04/22/19 04/22/19 04:43 04:43 WBC 13.3 H RBC 4.93 Hgb 13.5 Hct 41.3 MCV 84 MCH 27.4 MCHC 32.8 RDW 15.0 H Plt Count 415 Seg Neutrophils % 48.8 Sodium 139.7 Potassium 4.9 Chloride 105 Carbon Dioxide 26 Anion Gap 9 BUN 6 L Creatinine 0.69 Est GFR ( Amer) > 60 Glucose 100 Calcium 9.7 04/20/19 23:52 Blood Blood Culture (PCR) - Final Staphylococcus Aureus Strep Pyogenes (Grp A) Impressions: Chest X-Ray 04/20/19 22:29 IMPRESSION: No active intrathoracic disease copyright 2011 [employer]- All Rights Reserved Assessment & Plan - Diagnosis (1) IV drug abuse Is this a current diagnosis for this admission?: Yes (2) Onychia and paronychia of finger Is this a current diagnosis for this admission?: Yes (3) Pyogenic skin abscess due to bacteria Is this a current diagnosis for this admission?: Yes - Time Time Spent with patient: 25-34 minutes - Plan Summary Plan Summary: Assessment: Postoperative day #1 following incision and drainage of multiple skin abscesses (see physical exam); all abscess sites are clean, residual cellulitis, granulating without odor Postop day #1 following removal nail of the right long finger by the orthopedic surgery service (Dr. Atwood) Positive blood culture for Streptococcus a and Staphylococcus Wound culture positive for gram-positive cocci in clusters Plan: Twice daily dressing changes with normal saline wet-to-dry sponges to all abscess sites Continue current IV antibiotics Antibiotic course will be tailored according to the culture results Echo pending to rule out cardiac vegetations causing possibly septic emboli I am recommending to check the patient HIV status as he admits to have shared needles in the past No acute general surgery issues identified
[2019-04-22] MEDS: DOCUSATE SODIUM 100 MG CAPSULE PO SCH ×2 (10:46→17:24)
[2019-04-22] MEDS: NEOMY/BACITRAC ZN/POLY OINT 15 GM TP SCH ×3 (11:17→17:23)
[2019-04-22 11:34] LABS: VANCOMYCIN,TROUGH < 5.0 ug/mL (5.0-20.0)
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
[2019-04-22] MEDS ORDERED: INFLUENZA QUAD (6MOS+) 2019-20 VAC 0.5 ML SYR IM ONE (14:47)
[2019-04-22] MEDS: VANCOMYCIN HCL 1,250 MG in DEXTROSE 5%-WATER 250 ML IV SCH ×2 (17:29→23:38)
[2019-04-22] MEDS: CEFTRIAXONE 1 GM/D5W RTU 1 GM/50 ML RTUPB IV SCH (22:30)
[2019-04-23] MEDS: VANCOMYCIN HCL 1,250 MG in DEXTROSE 5%-WATER 250 ML IV SCH (05:17)
[2019-04-23 05:37] LABS: HEPATITS B SURFACE ANTIGEN Negative (Negative)
[2019-04-23] MEDS: METHADONE HCL 10 MG TABLET PO SCH ×3 (06:57→22:16)
[2019-04-23] MEDS: NEOMY/BACITRAC ZN/POLY OINT 15 GM TP SCH ×2 (10:33→18:00)
--- NOTE | 2019-04-23 11:53 | PDOC PROGRESS REPORT ---
Subjective Reason For Visit: SEPSIS,PYOGENIC SKIN ABSCESS DUE TO BACTERIA, No complaints Physical Exam Vital Signs: Temp Pulse Resp BP Pulse Ox 99.2 F 84 18 118/77 95 04/23/19 07:31 04/23/19 07:31 04/23/19 07:31 04/23/19 07:31 04/23/19 07:31 Intake & Output 04/22/19 04/23/19 04/24/19 06:59 06:59 06:59 Intake Total 6013 2537 Output Total 10 Balance 6013 2539 Weight 67.9 kg 69.5 kg General appearance: PRESENT: no acute distress Skin exam: PRESENT: other - Extensive abscesses of the scalp upper extremities; right posterior neck wound erythematous but no Pus Results Laboratory Results: 04/22/19 04:43 04/22/19 09:25 04/20/19 23:52 Blood Blood Culture (PCR) - Final Staphylococcus Aureus Strep Pyogenes (Grp A) 04/20/19 23:52 Blood Blood Culture - Final Group A Beta Streptococcus Staphylococcus Aureus 04/21/19 13:23 Neck - Abscess Gram Stain - Final 04/21/19 13:23 Neck - Abscess Wound Culture - Final Staphylococcus Aureus Group A Beta Streptococcus No Anaerobic Organisms 04/21/19 00:19 Arm - Right Gram Stain - Final Impressions: Chest X-Ray 04/20/19 22:29 IMPRESSION: No active intrathoracic disease copyright 2011 [employer]- All Rights Reserved Assessment & Plan - Diagnosis (1) IV drug abuse Is this a current diagnosis for this admission?: Yes (2) Pyogenic skin abscess due to bacteria Is this a current diagnosis for this admission?: Yes Plan: Impression: Status post a wound debridement with the majority of the soft tissue infection, minimally controlled. Right posterior lateral neck wound still erythematous Recommendations 1. Continue local wound care IV antibiotics 2. Hopefully home soon - Time Time Spent with patient: 15-24 minutes Medications reviewed and adjusted accordingly: Yes Anticipated discharge: Home
[2019-04-23] MEDS ORDERED: CEFAZOLIN 2 GM/D5W RTU 2 GM/50 ML RTUPB IV SCH (12:00)
[2019-04-23 12:31] LABS: VANCOMYCIN,TROUGH 21.8 ug/mL (5.0-20.0)
[2019-04-23] MEDS: DOCUSATE SODIUM 100 MG CAPSULE PO SCH ×2 (12:39→20:22)
[2019-04-23] MEDS: NORMAL SALINE 1000 ML 1,000 ML IV PRN (12:40)
[2019-04-23] MEDS: CEFAZOLIN SODIUM 2 GM in DEXTROSE 5%-WATER 100 ML IV SCH ×2 (14:21→21:50)
--- NOTE | 2019-04-23 14:55 | XCELERA REPORT ---
[address] [address] Transthoracic Echocardiogram Report Name: KEYONA LEYVA Age: 29 yrs Gender: Male : 1990 Patient Status: Inpatient Patient Location: [address] [place] [address] Study Date: 04/22/2019 06:01 PM History: Endocarditis Height: 75 in Weight: 149 lb BSA: 1.9 m2 Procedure: A limited two-dimensional transthoracic echocardiogram was performed (2D). Reason For Study: r/o endocarditis Previous Evaluation: No previous studies were available. History: IV Drug use. Ordering Physician: LILLIAN ESPINOZA Performed By: Ella Funes Interpretation Summary No vegetation seen on transthoracic images. Left ventricular systolic function is normal. The Ejection Fraction estimate is 55-60% The right ventricle is normal in size and function. There is a trace amount of mitral regurgitation There is no aortic valve stenosis There is a trace amount of tricuspid regurgitation There is no pericardial effusion. No vegetation seen on transthoracic images MMode/2D Measurements & Calculations RVDd: 1.8 cm LVIDd: 5.6 cm FS: 30.6 % Ao root diam: IVSd: 0.79 cm LVIDs: 3.9 cm EDV(Teich): 2.3 cm LVPWd: 0.81 cm 152.0 ml Ao root area: ESV(Teich): 4.2 cm2 64.7 ml LA dimension: EF(Teich): 57.5 % 2.9 cm LVLd ap4: 8.7 cm SV(MOD-sp4): 77.0 ml EDV(MOD-sp4): 120.0 ml LVLs ap4: 6.7 cm ESV(MOD-sp4): 43.0 ml EF(MOD-sp4): 64.2 % Doppler Measurements & Calculations MV E max inessa: MV P1/2t max inessa: Ao V2 max: LV V1 max P.2 cm/sec 85.1 cm/sec 112.9 cm/sec 3.2 mmHg MV A max inessa: MV P1/2t: 58.5 msec Ao max PG: LV V1 max: 75.0 cm/sec MVA(P1/2t): 3.8 cm2 5.1 mmHg 89.8 cm/sec MV E/A: 0.86 MV dec slope: 426.2 cm/sec2 MV dec time: 0.21 sec PA V2 max: MV P1/2t-pr_phl: 99.9 cm/sec 58.5 msec PA max P.0 mmHg Left Ventricle The left ventricle is grossly normal size. There is normal left ventricular wall thickness. Left ventricular systolic function is normal. The Ejection Fraction estimate is 55-60%. LV diastolic function could not be adequately assessed. The left ventricular wall motion is normal. Right Ventricle The right ventricle is normal in size and function. Atria The left atrial size is normal. Mitral Valve The mitral valve is grossly normal. There is no vegetation seen on the mitral valve. There is no mitral valve stenosis. There is a trace amount of mitral regurgitation. Aortic Valve The aortic valve is normal in structure and function. The aortic valve opens well. There is no aortic valvular vegetation. There is no aortic valve stenosis. No aortic regurgitation is present. Tricuspid Valve The tricuspid valve is normal in structure and function. There is no tricuspid valve vegetation. There is a trace amount of tricuspid regurgitation. Doppler findings do not suggest pulmonary hypertension. Pulmonic Valve The pulmonic valve is normal in structure and function. There is no vegetation on the pulmonic valve. There is no pulmonic valvular stenosis. There is a trace or physiologic amount of pulmonic regurgitation. Great Vessels The aortic root is normal size. The inferior vena cava appeared dilated and decreased < 50% with respiration (RAP 15-20 mmHg). Effusions There is no pericardial effusion. : LILLIAN ESPINOZA Anil
--- NOTE | 2019-04-23 17:32 | PDOC PROGRESS REPORT ---
Subjective Progress Note for:: 04/23/19 Subjective:: Patient is resting in bed. He just finished eating his lunch. Improved but still not feeling well. There is a question of increasing redness on his left calf. Reason For Visit: SEPSIS,PYOGENIC SKIN ABSCESS DUE TO BACTERIA, Physical Exam Vital Signs: Temp Pulse Resp BP Pulse Ox 97.4 F 77 18 122/73 91 L 04/23/19 16:44 04/23/19 16:44 04/23/19 16:44 04/23/19 16:44 04/23/19 16:44 Intake & Output 04/22/19 04/23/19 04/24/19 06:59 06:59 06:59 Intake Total 7062 2537 920 Output Total 10 Balance 7026 2537 920 Weight 67.9 kg 69.5 kg General appearance: PRESENT: cooperative, mild distress, thin Head exam: PRESENT: atraumatic, normocephalic Respiratory exam: PRESENT: clear to auscultation jeanine, symmetrical, unlabored. ABSENT: rales, rhonchi, stridor, tachypnea, wheezes Cardiovascular exam: PRESENT: RRR, +S1, +S2 GI/Abdominal exam: PRESENT: normal bowel sounds, soft. ABSENT: distended, tenderness Rectal exam: PRESENT: deferred Gentrourinary exam: ABSENT: indwelling catheter Extremities exam: ABSENT: pedal edema Neurological exam: PRESENT: alert, awake, oriented to person, oriented to place, oriented to situation Psychiatric exam: ABSENT: agitated, anxious Focused psych exam: ABSENT: delusional, restlessness Skin exam: PRESENT: other - Multiple reddened areas on both legs. Some with scabs. Some with ulcerated surfaces. Likely all injection sites. Results Laboratory Results: 04/22/19 04:43 04/22/19 09:25 04/21/19 00:19 Arm - Right Gram Stain - Final 04/20/19 23:52 Blood Blood Culture (PCR) - Final Staphylococcus Aureus Strep Pyogenes (Grp A) 04/20/19 23:52 Blood Blood Culture - Final Group A Beta Streptococcus Staphylococcus Aureus 04/21/19 13:23 Neck - Abscess Gram Stain - Final 04/21/19 13:23 Neck - Abscess Wound Culture - Final Staphylococcus Aureus Group A Beta Streptococcus No Anaerobic Organisms Impressions: Chest X-Ray 01/18/20 22:29 IMPRESSION: No active intrathoracic disease copyright 2011 [employer]- All Rights Reserved Assessment and Plan - Diagnosis (1) Bacteremia Is this a current diagnosis for this admission?: Yes Plan: Group A strep and methicillin sensitive staph aureus. Will change to Ceftin. Await blood cultures. If repeat cultures are negative consider discharge on extended oral antibiotic therapy. (2) IV drug abuse Is this a current diagnosis for this admission?: Yes Plan: History of needle sharing an extensive IV heroin use. HIV serologies negative. Hepatitis serologies pending. Urine screen on admission was positive for opiates. Monitor closely. (3) Onychia and paronychia of finger Is this a current diagnosis for this admission?: Yes Plan: Continue current antibiotic therapy and wound care suggested by orthopedic surgery. (4) Post-splenectomy Is this a current diagnosis for this admission?: Yes Plan: This does put the patient at risk for more severe infections. This needs to be considered when determining disposition and outpatient treatment. (5) Pyogenic skin abscess due to bacteria Is this a current diagnosis for this admission?: Yes Plan: Multiple lesions were incised and drained by surgery. Wound care dressings per their recommendation. Cultures were consistent with the bacteremia with group A strep and methicillin sensitive staph aureus present. We will change antibiotics accordingly. (6) Sepsis Qualifiers: Sepsis type: Streptococcus group A Is this a current diagnosis for this admission?: Yes Plan: Positive blood and wound cultures for group A strep and methicillin sensitive staph aureus. The patient did not meet sepsis criteria and likely had a systemic inflammatory response. - Time Time Spent with patient: 15-24 minutes Medications reviewed and adjusted accordingly: Yes Anticipated discharge: Home
[2019-04-23] MEDS ORDERED: BACITRACIN ZINC OINTMENT 15 GM TP SCH (18:00)
--- NOTE | 2019-04-23 22:05 | PDOC PROGRESS REPORT ---
Subjective Progress Note for:: 04/23/19 Subjective:: Patient reports continued pain but has had improvement. He was witnessed scraping his wounds today upon my initiation of the visit. He reports overall feeling better. No new events. Reason For Visit: SEPSIS,PYOGENIC SKIN ABSCESS DUE TO BACTERIA, Physical Exam Vital Signs: Temp Pulse Resp BP Pulse Ox 97.5 F 84 18 134/69 H 98 04/23/19 20:06 04/23/19 20:06 04/23/19 16:44 04/23/19 20:06 04/23/19 20:06 Intake & Output 04/22/19 04/23/19 04/24/19 06:59 06:59 06:59 Intake Total 7036 2537 1380 Output Total 10 Balance 7026 2537 1380 Weight 67.9 kg 69.5 kg Physical Exam: Patient is alert oriented x3. Right upper extremity is without signs of recurrent infection. Grossly neurovascular intact to all motor and sensory functions. The right third digit was palpated and no fluctuance is appreciable, no purulence was able to be expressed. It appears improved over prior visit. Other wounds on the right upper extremity are healing well without signs of progressive erythema. Pulses are 2+ Results Laboratory Results: 04/22/19 04:43 04/22/19 09:25 04/21/19 00:19 Arm - Right Gram Stain - Final 04/20/19 23:52 Blood Blood Culture (PCR) - Final Staphylococcus Aureus Strep Pyogenes (Grp A) 04/20/19 23:52 Blood Blood Culture - Final Group A Beta Streptococcus Staphylococcus Aureus 04/21/19 13:23 Neck - Abscess Gram Stain - Final 04/21/19 13:23 Neck - Abscess Wound Culture - Final Staphylococcus Aureus Group A Beta Streptococcus No Anaerobic Organisms Impressions: Chest X-Ray 04/20/19 22:29 IMPRESSION: No active intrathoracic disease copyright [address] [employer]- All Rights Reserved Assessment & Plan - Diagnosis (1) Onychia and paronychia of finger Is this a current diagnosis for this admission?: Yes Plan: Patient continues to improve at this time. Continue with twice daily soaks and dilute Betadine for 30 minutes today. May dressed the finger as needed. Patient may follow my office with any further problems otherwise will see me on an as-needed basis. Continue current antibiotics per medicine and infectious disease - Time Time Spent with patient: Less than 15 minutes
[2019-04-23] MEDS: BACITRACIN ZINC OINTMENT 15 GM TP SCH (22:58)
[2019-04-24] MEDS: NORMAL SALINE 1000 ML 1,000 ML IV PRN (02:01)
[2019-04-24] MEDS: CEFAZOLIN SODIUM 2 GM in DEXTROSE 5%-WATER 100 ML IV SCH ×4 (03:00→21:45)
[2019-04-24] MEDS ORDERED: BACITRACIN ZINC OINTMENT 15 GM ONE (03:04)
[2019-04-24] MEDS: METHADONE HCL 10 MG TABLET PO SCH ×2 (06:12→22:10)
[2019-04-24 07:27] LABS: HEMATOCRIT 37.9 % (37.9-51.0); HEMOGLOBIN 12.6 g/dL (13.5-17.0); MEAN CORPUSCULAR HEMOGLOBIN 27.4 pg (27.0-33.4); MEAN CORPUSCULAR HGB CONC 33.2 g/dL (32.0-36.0); MEAN CORPUSCULAR VOLUME 83 fl (80-97); PLATELET COUNT 503 10^3/uL (150-450); RED BLOOD COUNT 4.58 10^6/uL (4.35-5.55); RED CELL DISTRIBUTION WIDTH 14.9 % (11.5-14.0); WHITE BLOOD COUNT 11.3 10^3/uL (4.0-10.5)
[2019-04-24 07:45] LABS: ANION GAP 8 (5-19); BLOOD UREA NITROGEN 7 mg/dL (7-20); CALCIUM 9.5 mg/dL (8.4-10.2); CARBON DIOXIDE 34 mmol/L (22-30); CHLORIDE 95 mmol/L (98-107); GLUCOSE 95 mg/dL (75-110); POTASSIUM 4.7 mmol/L (3.6-5.0)
[2019-04-24 08:26] LABS: HEPATITIS C VIRUS ANTIBODY >11.0 s/co ratio (0.0-0.9)
--- NOTE | 2019-04-24 09:10 | PDOC PROGRESS REPORT ---
Subjective Progress Note for:: 04/24/19 Subjective:: The patient has no complaints Reason For Visit: SEPSIS,PYOGENIC SKIN ABSCESS DUE TO BACTERIA, Physical Exam Vital Signs: Temp Pulse Resp BP Pulse Ox 97.2 F 87 18 119/70 99 04/23/19 23:43 04/23/19 23:43 04/23/19 23:43 04/23/19 23:43 04/23/19 23:43 Intake & Output 04/23/19 04/24/19 04/25/19 06:59 06:59 06:59 Intake Total 2537 3442 Balance 2537 3442 Weight 69.5 kg 70.7 kg General appearance: PRESENT: no acute distress, thin Skin exam: PRESENT: other - Scalp, right mastoid, right neck, right back, right buttock, right forearm, right long finger, left thigh, left hand and finger = abscess sites all well healing with granulation, no drainage, Right calf = presence of new evolving abscess with erythema edema and tenderness as well as subcutaneous fluctuation Results Laboratory Results: 04/24/19 06:12 04/24/19 06:12 04/24/19 04/24/19 06:12 06:12 WBC 11.3 H RBC 4.58 Hgb 12.6 L Hct 37.9 MCV 83 MCH 27.4 MCHC 33.2 RDW 14.9 H Plt Count 503 H Sodium 137.4 Potassium 4.7 Chloride 95 L Carbon Dioxide 34 H Anion Gap 8 BUN 7 Creatinine 0.67 Est GFR ( Amer) > 60 Glucose 95 Calcium 9.5 Magnesium 2.1 04/21/19 00:19 Arm - Right Gram Stain - Final 04/21/19 00:19 Arm - Right Wound Culture - Final Staphylococcus Aureus Group A Beta Streptococcus 04/20/19 23:52 Blood Blood Culture (PCR) - Final Staphylococcus Aureus Strep Pyogenes (Grp A) 04/20/19 23:52 Blood Blood Culture - Final Group A Beta Streptococcus Staphylococcus Aureus 04/21/19 13:23 Neck - Abscess Gram Stain - Final 04/21/19 13:23 Neck - Abscess Wound Culture - Final Staphylococcus Aureus Group A Beta Streptococcus No Anaerobic Organisms Impressions: Chest X-Ray 04/20/19 22:29 IMPRESSION: No active intrathoracic disease copyright 2011 [employer]- All Rights Reserved Assessment & Plan - Diagnosis (1) IV drug abuse Is this a current diagnosis for this admission?: Yes (2) Onychia and paronychia of finger Is this a current diagnosis for this admission?: Yes (3) Pyogenic skin abscess due to bacteria Is this a current diagnosis for this admission?: Yes - Time Time Spent with patient: 25-34 minutes - Plan Summary Plan Summary: Assessment: Postoperative day #3 following incision and drainage of multiple skin abscesses (see physical exam) all well healing and granulating, Onset of new right calf abscess with erythema, edema, and subcutaneous fluctuation Plan: Incision drainage of right calf abscess at bedside today Apply topical antibiotic ointment to the other abscess sites today for an additional 4 days then stop
--- NOTE | 2019-04-24 10:53 | CDI QUERY ---
CDI Query CDI Review: [facility] LIVE [address] [facility] [place] [address] CDI Query Patient Name: KEYONA LEYVA Date of : 89 Patient Status: Inpatient Attending Provider: CHARLA SANDHU Date: 04/23/19 15:34 Initialization Date: 04/23/19 15:34 CDI Query CDI Review: Dear Provider, (name): To better reflect your patients severity of illness, morbidity, and resource utilization Please specify and document in the Progress Notes and Discharge Summary if you are monitoring / treating / evaluating any of the following conditions: The terms probable, suspected, likely, possible or still to be ruled out may be used if you are unable to determine the exact nature of a condition. Query Clinical indicators Narcotic dependence continuous use Narcotic use without dependence Unable to determine Progress Note: IV drug abuse Is this a current diagnosis for this admission?: Yes Plan: History of extensive heroin abuse and needle sharing. Continue supportive measures. Monitor for withdrawal. Continue methadone. Thank you, Clinical Documentation Physician Advisors HALIMA Stephenson RN, BSN RN Office [phone] Office [phone]
[2019-04-24] MEDS: NEOMY/BACITRAC ZN/POLY OINT 15 GM TP SCH ×2 (13:39→22:14)
[2019-04-24] MEDS: DOCUSATE SODIUM 100 MG CAPSULE PO SCH ×2 (13:41→19:03)
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
[2019-04-24] MEDS: NICOTINE 21 MG/24 HR PATCH.TD24 TD SCH (16:12)
[2019-04-24] MEDS: ACETAMINOPHEN 325 MG TABLET PO PRN (17:15)
[2019-04-25] MEDS: CEFAZOLIN SODIUM 2 GM in DEXTROSE 5%-WATER 100 ML IV SCH ×3 (02:05→14:03)
[2019-04-25 05:37] LABS: ANION GAP 7 (5-19); BLOOD UREA NITROGEN 7 mg/dL (7-20); CALCIUM 9.8 mg/dL (8.4-10.2); CARBON DIOXIDE 35 mmol/L (22-30); CHLORIDE 97 mmol/L (98-107); GLUCOSE 80 mg/dL (75-110)
[2019-04-25] MEDS: NEOMY/BACITRAC ZN/POLY OINT 15 GM TP SCH ×2 (07:34→09:36)
[2019-04-25] MEDS: BACITRACIN ZINC OINTMENT 15 GM TP SCH (07:34)
[2019-04-25] MEDS: DOCUSATE SODIUM 100 MG CAPSULE PO SCH (09:35)
[2019-04-25] MEDS: METHADONE HCL 10 MG TABLET PO SCH (09:35)
[2019-04-25] MEDS: NICOTINE 21 MG/24 HR PATCH.TD24 TD SCH (09:39)
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
[2019-04-25 12:20] VITALS: BP 121/61
[2019-04-28 23:36] LABS: HEPATITIS C QUANTITATION 1930 IU/mL (.)
[2019-04-29 07:12] LABS: HEPATITIS C LOG10 3.286 (.)
== END 2019-04-25 14:35 | disposition home or self-care (01) | DRG 602 ==
LOC: ER 20:56 → EH 04-21 02:52 → 5 04-21 04:21
PROVIDERS: ADMIT Internal Medicine; ATTEND Internal Medicine
PROC: 0HTQXZZ Resection of Finger Nail, External Approach (ICD-10-PCS; 2019-04-21)
PROC: 0H98XZX Drainage of Buttock Skin, External Approach, Diagnostic (ICD-10-PCS; 2019-04-21)
PROC: 0H9JXZX Drainage of Left Upper Leg Skin, External Approach, Diagnostic (ICD-10-PCS; 2019-04-21)
PROC: 0H90XZX Drainage of Scalp Skin, External Approach, Diagnostic (ICD-10-PCS; 2019-04-21)
PROC: 0H94XZX Drainage of Neck Skin, External Approach, Diagnostic (ICD-10-PCS; 2019-04-21)
PROC: 0H9DXZX Drainage of Right Lower Arm Skin, External Approach, Diagnostic (ICD-10-PCS; 2019-04-21)
PROC: 0H9GXZX Drainage of Left Hand Skin, External Approach, Diagnostic (ICD-10-PCS; 2019-04-21)
PROC: 0H95XZX Drainage of Chest Skin, External Approach, Diagnostic (ICD-10-PCS; 2019-04-21)
PROC: 0H9FXZZ Drainage of Right Hand Skin, External Approach (ICD-10-PCS; principal; 2019-04-21 12:30)
DX: L02.818 Cutaneous abscess of other sites (principal); G93.41 Metabolic encephalopathy; R78.81 Bacteremia; L03.811 Cellulitis of head [any part, except face]; L01.00 Impetigo, unspecified; L03.019 Cellulitis of unspecified finger; B95.61 Methicillin susceptible Staphylococcus aureus infection as the cause of diseases classified elsewhere; B95.0 Streptococcus, group A, as the cause of diseases classified elsewhere; B19.20 Unspecified viral hepatitis C without hepatic coma; F11.10 Opioid abuse, uncomplicated; F17.210 Nicotine dependence, cigarettes, uncomplicated; Z90.81 Acquired absence of spleen
CPT/HCPCS: 300; 36415; 71046; 80048; 80053; 80074; 80202; 80307; 81001; 82565; 83735; 85025; 85027; 86701; 87040; 87070; 87075; 87077; 87101; 87150; 87186; 87205; 87522; 93005; 93010; 93306; 96365; 96367; 99285; J0690; J0696; J1644; J1885; J1956; J2250; J2405; J2704; J3010; J3370; J3490; J7030; J7060

== ENCOUNTER 2019-12-29 18:40 | Emergency (ER) | payer SELFPAY ==
[2019-12-29] MEDS ORDERED: NALOXONE HCL INJ 2 MG/2 ML DISP.SYRIN IV ONE ×2 (18:57→19:04)
[2019-12-29] MEDS ORDERED: NALOXONE HCL INJ 2 MG/2 ML DISP.SYRIN ONE (18:59)
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
[2019-12-29 19:17] LABS: ABSOLUTE BASOPHILS # (AUTO) 0.1 10^3/uL (0.0-0.2); ABSOLUTE EOSINOPHILS # (AUTO) 0.2 10^3/uL (0.0-0.6); ABSOLUTE LYMPHOCYTES (AUTO) 3.7 10^3/uL (0.5-4.7); ABSOLUTE MONOCYTES (AUTO) 1.9 10^3/uL (0.1-1.4); ABSOLUTE NEUT (AUTO) 10.7 10^3/uL (1.7-8.2); BASOPHILS % (AUTO) 0.6 % (0-2); HEMATOCRIT 41.1 % (37.9-51.0); HEMOGLOBIN 13.8 g/dL (13.5-17.0); LYMPHOCYTES % (AUTO) 22.3 % (13-45); MEAN CORPUSCULAR HEMOGLOBIN 29.2 pg (27.0-33.4); MEAN CORPUSCULAR HGB CONC 33.5 g/dL (32.0-36.0); MEAN CORPUSCULAR VOLUME 87 fl (80-97); MONOCYTES % (AUTO) 11.4 % (3-13); PLATELET COUNT 260 10^3/uL (150-450); RED BLOOD COUNT 4.71 10^6/uL (4.35-5.55); RED CELL DISTRIBUTION WIDTH 14.6 % (11.5-14.0); SEGMENTED NEUTROPHILS % (AUTO) 64.7 % (42-78); TOTAL CELLS COUNTED % (AUTO) 100 %; WHITE BLOOD COUNT 16.6 10^3/uL (4.0-10.5)
[2019-12-29 19:36] LABS: ALBUMIN 4.3 g/dL (3.5-5.0); ALKALINE PHOSPHATASE 92 U/L (38-126); ANION GAP 9 (5-19); ASPARTATE AMINO TRANSFERASE 27 U/L (17-59); BILIRUBIN,DIRECT 0.3 mg/dL (0.0-0.4); BILIRUBIN,TOTAL 0.5 mg/dL (0.2-1.3); BLOOD UREA NITROGEN 7 mg/dL (7-20); CALCIUM 9.1 mg/dL (8.4-10.2); CARBON DIOXIDE 24 mmol/L (22-30); CHLORIDE 106 mmol/L (98-107); GLUCOSE 102 mg/dL (75-110); POTASSIUM 4.2 mmol/L (3.6-5.0); TOTAL PROTEIN 7.6 g/dL (6.3-8.2)
[2019-12-29 19:47] LABS: ACETAMINOPHEN < 10 ug/mL (10-30); ALCOHOL < 10 mg/dL (NONE DETECTED); SALICYLATE < 1.0 mg/dL (2.0-20.0)
[2019-12-29] MEDS ORDERED: NORMAL SALINE 1000 ML 1,000 ML IV ONE (21:12)
[2019-12-29] MEDS ORDERED: CEFTRIAXONE INJ 1000 MG VIAL IV ONE (22:25)
[2019-12-29] MEDS ORDERED: AZITHROMYCIN 250 MG TABLET PO ONE (22:26)
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
[2019-12-29] MEDS ORDERED: VANCOMYCIN HCL INJ 1000 MG VIAL IV ONE (22:33)
[2019-12-29 22:35] LABS: APPEARANCE,URINE CLEAR; BILIRUBIN,URINE NEGATIVE (NEGATIVE); COLOR,URINE YELLOW; GLUCOSE, URINE NEGATIVE (NEGATIVE); KETONES,URINE NEGATIVE (NEGATIVE); LEUKOCYTE ESTERASE,URINE NEGATIVE (NEGATIVE); NITRITE,URINE NEGATIVE (NEGATIVE); PROTEIN,URINE NEGATIVE (NEGATIVE); URINE SPECIFIC GRAVITY 1.006; UROBILINOGEN,URINE NEGATIVE mg/dL (<2.0)
[2019-12-29 22:59] LABS: URINE BARBITURATES SCREEN NEGATIVE; URINE COCAINE SCREEN NEGATIVE; URINE METHADONE SCREEN NEGATIVE; URINE PHENCYCLIDINE SCREEN NEGATIVE
[2019-12-29 23:00] LABS: URINE BENZODIAZEPINES SCREEN UNCONFIRMED POSITIVE; URINE MARIJUANA (THC) SCREEN UNCONFIRMED POSITIVE
[2019-12-30 01:26] VITALS: BP 93/67
--- NOTE | 2019-12-30 02:12 | EKG REPORT ---
SEVERITY:- ABNORMAL ECG - SINUS RHYTHM FIRST DEGREE AV BLOCK : Confirmed by: Lovely Roman MD 30-Dec-2019 02:12:13
== END 2019-12-30 01:34 | disposition home or self-care (01) ==
LOC: ER 18:40
DX: T40.1X1A Poisoning by heroin, accidental (unintentional), initial encounter (principal); T50.991A Poisoning by other drugs, medicaments and biological substances, accidental (unintentional), initial encounter; J40 Bronchitis, not specified as acute or chronic; Z90.81 Acquired absence of spleen; Y92.9 Unspecified place or not applicable; G24.01 Drug induced subacute dyskinesia; R04.2 Hemoptysis; R11.0 Nausea; R61 Generalized hyperhidrosis; R53.1 Weakness; F17.210 Nicotine dependence, cigarettes, uncomplicated; R13.10 Dysphagia, unspecified; R10.9 Unspecified abdominal pain; R45.1 Restlessness and agitation; F41.9 Anxiety disorder, unspecified; Z20.828 Contact with and (suspected) exposure to other viral communicable diseases
CPT/HCPCS: 93005; 99285; 96361; 96375; 96365; 36415; 87040; 80307 ×4; 85025; 87635; 87077; 80053; 81001; 87186; 71045; 93010; J0696; J2310; J7030; J3370; C9803

== ENCOUNTER 2019-12-30 21:31 | Inpatient (IN) | payer SELFPAY ==
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
--- NOTE | 2019-12-30 22:33 | RADIOLOGY REPORT (SQ) ---
EXAM DESCRIPTION: XR CHEST 1 VIEW COMPLETED DATE/TME: 12/30/2019 21:58 CLINICAL HISTORY: 29 years, Male, + blood cultures, PUI Comparison: None FINDINGS: No focal lung consolidation. No pleural effusion. No pneumothorax. Cardiac and mediastinal silhouette is unremarkable. No acute osseous abnormality. Soft tissues are unremarkable. IMPRESSION: No acute findings. No focal lung consolidation.
--- NOTE | 2019-12-31 01:37 | ER Document Report ---
ED General - General Chief Complaint: Abnormal Lab Results Stated Complaint: ABNORMAL LABS Time Seen by Provider: 12/30/19 21:42 TRAVEL OUTSIDE OF THE [place] IN LAST 30 DAYS: No - HPI Notes: 29-year-old male presents with abnormal lab results. Patient was seen in the emergency department yesterday following a heroin overdose, he received Narcan he had blood cultures drawn at that time. He had reported a productive cough and was prescribed Levaquin and azithromycin. Patient was called back this evening with results of positive blood cultures. He states that for the past few days he has had a cough productive of a thick brown sputum. He has had some vomiting. He reports back pain and leg pain. Patient is known to abuse IV heroin and methamphetamine, used today. He has a history of bacteremia from abscesses. He currently denies any areas of skin abscess. He additionally was tested for COVID yesterday. - Related Data Allergies/Adverse Reactions: No Known Allergies Allergy (Verified 12/29/19 19:13) Home Medications: z-mari, levaquin--started today Past Medical History - General Information source: Patient - Social History Smoking Status: Current Every Day Smoker Drug Abuse: Heroin, Methamphetamine Family History: Hypertension GI Medical History: Reports: Hx Hepatitis Musculoskeletal Medical History: Reports Hx Arthritis Psychiatric Medical History: Reports: Hx Depression Infectious Medical History: Reports: Hx MRSA - Immunizations Immunizations up to date: Yes Hx Diphtheria, Pertussis, Tetanus Vaccination: Yes - september 2012 Review of Systems - Review of Systems Constitutional: denies: Fever EENT: No symptoms reported Cardiovascular: No symptoms reported Respiratory: Cough, Sputum Gastrointestinal: Vomiting. denies: Abdominal pain Genitourinary: No symptoms reported Male Genitourinary: No symptoms reported Musculoskeletal: Muscle pain Skin: denies: Lesions Neurological/Psychological: No symptoms reported Physical Exam - Vital signs Vitals: Temp Pulse Resp BP Pulse Ox 97.5 F 92 16 112/53 L 100 12/30/19 22:08 12/30/19 22:08 12/30/19 22:08 12/30/19 22:08 12/30/19 22:08 - General General appearance: Alert In distress: None - HEENT Head: Normocephalic, Atraumatic Eyes: No: Scleral icterus Extraocular movements intact: Yes Pupils: PERRL - Respiratory Respiratory status: No respiratory distress Breath sounds: Normal, Nonproductive cough - Cardiovascular Rhythm: Regular Heart sounds: Normal auscultation - Abdominal Tenderness: Nontender - Extremities General upper extremity: Normal ROM General lower extremity: Normal ROM - Neurological Neuro grossly intact: Yes Cognition: Normal Orientation: AAOx4 - Psychological Associated symptoms: Normal affect - Skin Skin Temperature: Warm Notes: There is a small area of skin ulceration to the left medial forearm, no purulence Do not see any obvious abscesses to patient's arms No discoloration appreciated to fingers or toes Course - Re-evaluation Re-evalutation: 29-year-old male history of IV drug abuse, hep C, status post splenectomy here for positive blood cultures. He was seen in the emergency department yesterday following a heroin overdose, he had a Narcan revival, had mentioned a productive cough, he had a leukocytosis and presumably had blood cultures done for this reason. So far 1 set is positive for gram positive cocci. While this potentially could represent a contaminant, he has a significant risk factor for bacteremia. He has had bacteremia in the past, secondary to skin abscesses which required surgical drainage. Will empirically cover with vancomycin. Endocarditis is of course a possibility as well, will obtain a CT chest to see if there is any evidence of septic emboli or consolidation present. Adjust meds as necessary. We will additionally reobtain blood cultures. 12/31/19 02:57 No leukocytosis or left shift. Electrolytes okay. No elevation of lactic acid. CRP negative. I discussed admission with the hospitalist. I updated the patient on admission, he is agreeable to stay for treatment - Vital Signs Vital signs: Temp Pulse Resp BP Pulse Ox 97.5 F 92 16 112/53 L 100 12/30/19 22:08 12/30/19 22:08 12/30/19 22:08 12/30/19 22:08 12/30/19 22:08 - Laboratory Result Diagrams: 12/31/19 01:35 12/31/19 01:35 Laboratory results interpreted by me: 12/31/19 01:35 RDW 14.8 H Lymph % (Auto) 47.3 H Absolute Lymphs (auto) 5.0 H Seg Neutrophils % 36.7 L - Diagnostic Test Radiology reviewed: Image reviewed, Reports reviewed Discharge - Discharge Clinical Impression: Positive blood culture, IV drug abuse Disposition: ADMITTED INPATIENT Admitting Provider: Yung (Hospitalist)
[2019-12-31] MEDS ORDERED: VANCOMYCIN HCL INJ 1000 MG VIAL IV ONE ×2 (01:51→03:14)
[2019-12-31] MEDS ORDERED: RINGERS SOLUTION,LACTATED 1,000 ML IV ONE (01:53)
[2019-12-31 02:08] LABS: ABSOLUTE EOSINOPHILS # (AUTO) 0.4 10^3/uL (0.0-0.6); ABSOLUTE MONOCYTES (AUTO) 1.2 10^3/uL (0.1-1.4); ABSOLUTE NEUT (AUTO) 3.9 10^3/uL (1.7-8.2); BASOPHILS % (AUTO) 0.2 % (0-2); HEMATOCRIT 41.2 % (37.9-51.0); LYMPHOCYTES % (AUTO) 47.3 % (13-45); MEAN CORPUSCULAR HEMOGLOBIN 29.8 pg (27.0-33.4); MEAN CORPUSCULAR HGB CONC 34.1 g/dL (32.0-36.0); MEAN CORPUSCULAR VOLUME 87 fl (80-97); MONOCYTES % (AUTO) 11.8 % (3-13); PLATELET COUNT 318 10^3/uL (150-450); RED BLOOD COUNT 4.71 10^6/uL (4.35-5.55); RED CELL DISTRIBUTION WIDTH 14.8 % (11.5-14.0); SEGMENTED NEUTROPHILS % (AUTO) 36.7 % (42-78); TOTAL CELLS COUNTED % (AUTO) 100 %; WHITE BLOOD COUNT 10.5 10^3/uL (4.0-10.5)
[2019-12-31 02:14] LABS: ALBUMIN 3.7 g/dL (3.5-5.0); ALKALINE PHOSPHATASE 83 U/L (38-126); ASPARTATE AMINO TRANSFERASE 25 U/L (17-59); BILIRUBIN,DIRECT 0.2 mg/dL (0.0-0.4); BILIRUBIN,TOTAL 0.2 mg/dL (0.2-1.3); BLOOD UREA NITROGEN 12 mg/dL (7-20); CALCIUM 9.4 mg/dL (8.4-10.2); CHLORIDE 105 mmol/L (98-107); GLUCOSE 76 mg/dL (75-110); POTASSIUM 4.1 mmol/L (3.6-5.0); TOTAL PROTEIN 6.5 g/dL (6.3-8.2)
[2019-12-31 02:39] LABS: ANION GAP 7 (5-19); CARBON DIOXIDE 29 mmol/L (22-30)
[2019-12-31] MEDS ORDERED: MAGNESIUM HYDROXIDE SUSP 30 ML UDCUP PO PRN (02:59)
[2019-12-31] MEDS ORDERED: MAG HYDROX/AL HYDROX/SIMETH SUSP 30 ML UDCUP PO PRN (02:59)
[2019-12-31] MEDS ORDERED: LEVALBUTEROL HCL NEB 0.63 MG/3 ML AMPUL NEB PRN (02:59)
[2019-12-31] MEDS ORDERED: LORAZEPAM INJ 2 MG/1 ML VIAL IV PRN (03:06)
[2019-12-31] MEDS ORDERED: HYDRALAZINE HCL INJ/PF 20 MG/1 ML SDV IV PRN (03:06)
[2019-12-31] MEDS ORDERED: METOPROLOL TARTRATE PF/INJ 5 MG/5 ML SDV IV PRN (03:06)
[2019-12-31] MEDS ORDERED: GUAIFENESIN SYRP 200 MG/10 ML UDC PO PRN (03:06)
[2019-12-31] MEDS ORDERED: NICOTINE 21 MG/24 HR PATCH.TD24 TD PRN (03:06)
[2019-12-31] MEDS ORDERED: ACETAMINOPHEN 325 MG TABLET PO PRN (03:06)
[2019-12-31] MEDS ORDERED: MELATONIN 5 MG TABLET PO PRN (03:06)
[2019-12-31] MEDS ORDERED: KETOROLAC TROMETHAMINE INJ/PF 30 MG/1 ML SDV IV PRN (03:08)
[2019-12-31] MEDS ORDERED: VANCOMYCIN HCL INJ 500 MG VIAL IV PRN (03:25)
[2019-12-31] MEDS ORDERED: CEFEPIME 2 GM/D5W RTU 2 GM/50 ML RTUPB IV ONE (03:30)
[2019-12-31] MEDS ORDERED: VANCOMYCIN HCL 500 MG in DEXTROSE 5%-WATER 100 ML IV ONE (03:30)
--- NOTE | 2019-12-31 05:12 | RADIOLOGY REPORT (SQ) ---
CT ANGIOGRAM CHEST WITH IV CONTRAST: 12/31/2019 4:07 AM CDT HISTORY: 29-year old patient with hemoptysis, concern for septic emboli. TECHNIQUE: Postcontrast CT through the chest was performed per protocol for CT angiography. 3D Multiplanar reformations were performed at the workstation. Reconstructed sagittal and coronal images were also obtained through the chest. This exam was performed according to our departmental dose-optimization program, which includes automated exposure control, adjustment of the mA and/or KV according to the patient's size and/or use of iterative reconstruction technique. COMPARISON: None available FINDINGS: The heart size is within normal limits of size. No large pericardial effusion is seen. No significant mediastinal, supraclavicular, or axillary lymphadenopathy is seen. The thoracic aorta is within normal limits of size. No filling defects are seen within the pulmonary arteries to suggest a pulmonary artery embolism. The main pulmonary artery is within normal limits in size. The thyroid gland is unremarkable. The central tracheobronchial tree is patent. No focal consolidative airspace opacity is seen. No discrete pleural effusion is seen. There is no evidence of a pneumothorax. The bones demonstrate no suspicious lytic or blastic lesion. The visualized portions of the upper abdomen appear grossly unremarkable. IMPRESSION: No acute airspace opacities are seen. No filling defect is seen to suggest a pulmonary artery embolism.
[2019-12-31] MEDS ORDERED: HEPARIN SOD (PORCINE) 5,000 UNIT/ML 1 ML VIAL SUBCUT SCH (06:00)
[2019-12-31] MEDS ORDERED: PANTOPRAZOLE SODIUM 40 MG TABLET.DR PO SCH (06:00)
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
[2019-12-31] MEDS ORDERED: METOCLOPRAMIDE HCL 10 MG TABLET PO SCH (08:00)
[2019-12-31 08:52] VITALS: BP 117/73
[2019-12-31] MEDS ORDERED: DOCUSATE SODIUM 100 MG CAPSULE PO SCH (10:00)
[2019-12-31] MEDS ORDERED: VANCOMYCIN HCL INJ 1000 MG VIAL IV SCH (10:00)
--- NOTE | 2019-12-31 10:04 | PDOC PROGRESS REPORT ---
Subjective Progress Note for:: 12/31/19 Subjective:: Patient is resting on room air with 100 and saturation. He actually states that he feels better. Reason For Visit: BACTEREMIA Physical Exam Vital Signs: Temp Pulse Resp BP Pulse Ox 98.2 F 82 16 117/73 100 12/31/19 03:00 12/31/19 08:51 12/31/19 08:51 12/31/19 08:51 12/31/19 08:51 Intake & Output 12/30/19 12/31/19 01/01/20 06:59 06:59 06:59 Intake Total 1050 Balance 1050 Weight 74.8 kg General appearance: PRESENT: no acute distress, cooperative, well-developed Head exam: PRESENT: atraumatic, normocephalic Eye exam: PRESENT: conjunctiva pink, EOMI. ABSENT: scleral icterus Ear exam: PRESENT: normal external ear exam. ABSENT: bleeding, drainage Mouth exam: PRESENT: moist, tongue midline Teeth exam: ABSENT: poor dentation Respiratory exam: PRESENT: clear to auscultation jeanine, symmetrical, unlabored. ABSENT: rales, rhonchi, tachypnea, wheezes Cardiovascular exam: PRESENT: RRR, +S1, +S2. ABSENT: bradycardia, diastolic murmur, irregular rhythm, systolic murmur, tachycardia GI/Abdominal exam: PRESENT: normal bowel sounds, soft. ABSENT: distended, guarding, rebound, tenderness Rectal exam: PRESENT: deferred Gentrourinary exam: ABSENT: indwelling catheter Extremities exam: ABSENT: calf tenderness, pedal edema Musculoskeletal exam: PRESENT: ambulatory, normal inspection. ABSENT: deformity , dislocation Neurological exam: PRESENT: alert, awake, oriented to person, oriented to place, oriented to time, oriented to situation, CN II-XII grossly intact. ABSENT: alte red, motor sensory deficit Psychiatric exam: PRESENT: appropriate affect. ABSENT: agitated, anxious Focused psych exam: ABSENT: delusional, paranoid, restlessness Skin exam: PRESENT: dry, warm. ABSENT: rash Results Laboratory Results: 12/31/19 01:35 12/31/19 01:35 12/31/19 12/31/19 12/31/19 01:35 01:35 01:35 WBC 10.5 RBC 4.71 Hgb 14.0 Hct 41.2 MCV 87 MCH 29.8 MCHC 34.1 RDW 14.8 H Plt Count 318 Seg Neutrophils % 36.7 L Sodium 140.6 Potassium 4.1 Chloride 105 Carbon Dioxide 29 Anion Gap 7 BUN 12 Creatinine 0.81 Est GFR ( Amer) > 60 Glucose 76 Lactic Acid 1.1 Calcium 9.4 Total Bilirubin 0.2 AST 25 Alkaline Phosphatase 83 C-Reactive Protein Total Protein 6.5 Albumin 3.7 12/31/19 01:35 WBC RBC Hgb Hct MCV MCH MCHC RDW Plt Count Seg Neutrophils % Sodium Potassium Chloride Carbon Dioxide Anion Gap BUN Creatinine Est GFR ( Amer) Glucose Lactic Acid Calcium Total Bilirubin AST Alkaline Phosphatase C-Reactive Protein < 5.0 Total Protein Albumin Impressions: Chest X-Ray 12/30/19 21:58 IMPRESSION: No acute findings. No focal lung consolidation. Chest/Abdomen CTA 12/31/19 01:50 IMPRESSION: No acute airspace opacities are seen. No filling defect is seen to suggest a pulmonary artery embolism. Assessment and Plan - Diagnosis (1) Positive blood culture Is this a current diagnosis for this admission?: Yes (2) Hepatitis C antibody test positive Is this a current diagnosis for this admission?: Yes (3) IV drug abuse Is this a current diagnosis for this admission?: Yes (4) Tobacco use disorder, continuous Is this a current diagnosis for this admission?: Yes - Plan Summary Summary: Patient be admitted to medical floor he will receive routine supportive and symptomatic cares. He will be given cefepime 2 g IV every 12 hours and vancomycin 1125 mg IV every 8 hours initially with pharmacy to adjust dosing based on trough levels. He received Ativan 1 mg IV every 4 hours as needed for anxiety or restlessness. A cardiology consultation with Dr. Pace will be obtained for consideration of a transesophageal echocardiogram. CBCs, metabolic profiles and additional laboratory and/or radiographic evaluations will be obtained as appropriate. He will use Toradol 30 mg IV every 6 hours as needed for pain. He will be on a cardiac diet. Smoking cessation is recommended and counseled briefly at the bedside. A nicotine replacement patch is available for the patient's use, if desired. 12/31/2019 Patient is quite comfortable. He is on room air with good oxygen saturation. [id number] cocci isolated from 1 culture bottle. There is a high probability that this is a contaminant. Continue antibiotics for now and await final results. New blood cultures have been drawn today as well. IV drug use-high risk for bacteremia. If bacteremic then consider ABDULAZIZ. Vital signs are stable at this time. - Time Time Spent with patient: 15-24 minutes Smoking Cessation Education: 3 to 10 minutes Medications reviewed and adjusted accordingly: Yes Anticipated Discharge Disposition: Home, Self Care Anticipated Discharge Timeframe: within 72 hours
[2019-12-31] MEDS ORDERED: VANCOMYCIN HCL 1,250 MG in DEXTROSE 5%-WATER 250 ML IV SCH (11:00)
[2019-12-31] MEDS ORDERED: CEFEPIME 2 GM/D5W RTU 2 GM/50 ML RTUPB IV SCH (18:00)
--- NOTE | 2019-12-31 19:50 | Left Against Medical Advice ---
Against Medical Advice Admission Date/Time: 12/31/19 03:17 Primary Care Provider: Date of Patient Emigration: 12/31/19 - Diagnosis: (1) Positive blood culture Is this a current diagnosis for this admission?: Yes (2) Hepatitis C antibody test positive Is this a current diagnosis for this admission?: Yes (3) IV drug abuse Is this a current diagnosis for this admission?: Yes (4) Tobacco use disorder, continuous Is this a current diagnosis for this admission?: Yes - Summary: Summary: Please see Admission and Progress Notes as well. KEYONA LEYVA is a 29 M, who LEFT AGAINST MEDICAL ADVICE. The Patient was admitted on 12/31/19 03:17. I saw the patient earlier this morning. He was still waiting for a bed upstairs. I told him that once I have the final culture results we could review the need for treatment. Later in the morning I was called by the emergency de partment nurse. She states that the patient just walked out. I do believe that the single blood culture could certainly be a contaminant. The patient did not have an elevated white blood cell count.
== END 2019-12-31 10:20 | disposition left against medical advice (07) | DRG 872 ==
LOC: ER 21:31 → EH 12-31 03:17
PROVIDERS: ADMIT Emergency Medicine; ATTEND Hospitalist
DX: R78.81 Bacteremia (principal); F15.10 Other stimulant abuse, uncomplicated; B18.2 Chronic viral hepatitis C; F11.10 Opioid abuse, uncomplicated; F17.200 Nicotine dependence, unspecified, uncomplicated; M19.90 Unspecified osteoarthritis, unspecified site; F32.9 Major depressive disorder, single episode, unspecified; Z86.14 Personal history of Methicillin resistant Staphylococcus aureus infection; R05 Cough; M54.9 Dorsalgia, unspecified; M79.606 Pain in leg, unspecified; I10 Essential (primary) hypertension; Z90.81 Acquired absence of spleen; Z87.828 Personal history of other (healed) physical injury and trauma; F12.10 Cannabis abuse, uncomplicated; Z71.6 Tobacco abuse counseling; Z82.49 Family history of ischemic heart disease and other diseases of the circulatory system
CPT/HCPCS: 36415; 71045; 71275; 80053; 83605; 85025; 86140; 87040; 96374; 99285; J0692; J1644; J1885; J3370; J3490; J7120